=== PATIENT | female | born 1950 | race African-American/Black ===

== ENCOUNTER 2019-04-12 21:28 | Inpatient (IN) | payer MEDICARE ==
[~2019-04-12] VITALS: Ht 167.6 cm; Wt 48.1 kg
--- NOTE | 2019-04-12 21:44 | NUR ---
ED Nurse Note: pt ambulated to ed c/o aches and chills x 1 day. per brother abhishek who is bedside. noticed that she had an increase in confusion over 1 day. pt has left elbow cellulitis. pt aox3 to name, place, and purpose.
[2019-04-12 21:48] VITALS: BP_SYST 116; BP_SYST 85; BP_DIAS 108; BP_DIAS 56
[2019-04-12 22:56] LABS: HEMATOCRIT 43.4 % (37.0-47.0); HEMOGLOBIN 15.7 G/DL (12.0-16.0); MEAN CORPUSCULAR VOLUME 93 FL (80-99); PLATELET COUNT 159 K/UL (150-450); RED BLOOD COUNT 4.66 M/UL (4.20-5.40); WHITE BLOOD COUNT 17.8 K/UL (4.8-10.8)
[2019-04-12] MEDS ORDERED: Piperacillin/Tazobactam 3.375 GM in NS 110 ML IVPB ONE (23:00)
[2019-04-12] MEDS ORDERED: Vancomycin 1 GM in NS 275 ML IVPB ONE (23:00)
--- NOTE | 2019-04-12 23:20 | NUR ---
ED Nurse Note: brother (saray) [phone]
[2019-04-12 23:24] LABS: ALANINE AMINOTRANSFERASE 18 U/L (12-78); ALBUMIN 3.3 G/DL (3.4-5.0); ALBUMIN/GLOBULIN RATIO 0.8 (1.0-2.7); ALKALINE PHOSPHATASE 63 U/L (46-116); ANION GAP 11 mmol/L (5-15); ASPARTATE AMINO TRANSFERASE 27 U/L (15-37); BILIRUBIN,TOTAL 0.3 MG/DL (0.2-1.0); BLOOD UREA NITROGEN 20 mg/dL (7-18); CALCIUM 9.2 MG/DL (8.5-10.1); CARBON DIOXIDE 22 MMOL/L (21-32); CHLORIDE 99 MMOL/L (98-107); CREATININE 1.4 MG/DL (0.55-1.30); POTASSIUM 3.8 MMOL/L (3.5-5.1); SODIUM 132 MMOL/L (136-145)
[2019-04-12 23:34] VITALS: BP 140/89
[2019-04-12 23:39] LABS: BILIRUBIN, URINE NEGATIVE (NEGATIVE); COLOR,URINE PALE YELLOW; GLUCOSE, URINE (UA) NEGATIVE (NEGATIVE); KETONES,URINE NEGATIVE (NEGATIVE); LEUKOCYTE ESTERASE ,URINE 2+ (NEGATIVE); NITRITE,URINE NEGATIVE (NEGATIVE); PH,URINE 6 (4.5-8.0); PROTEIN,URINE 2+ (NEGATIVE); UROBILINOGEN,URINE NORMAL MG/DL (0.0-1.0)
[2019-04-12 23:41] LABS: APPEARANCE,URINE SLIGHTLY CLOUDY
--- NOTE | 2019-04-13 00:30 | NUR ---
ED Nurse Note: telephone report given to negro tarango
--- NOTE | 2019-04-13 00:32 | Emergency Room Report ---
History of Present Illness General Chief Complaint: Altered Mental Status Source: Patient, Family Member Present Illness HPI This is a 68-year-old female with no past medical history. She was brought in by her son for chief complaint of left elbow infection and altered mental status. This been ongoing for 1 day. Her son said that she like to sit on the floor with her elbow on the rug. She has abrasion to the left elbow. But today got swollen and little warm. She is more confused. No nausea no vomiting. Pain with palpation. Denies any other injury. Did not pass out. Allergies: Coded Allergies: No Known Allergies (Unverified , 04/12/19) Patient History Past Medical History: see triage record, old chart reviewed Past Surgical History: none Pertinent Family History: none Social History: Denies: smoking Now: No Immunizations: other Reviewed Nursing Documentation: PMH: Agreed; PSxH: Agreed Nursing Documentation-PMH Past Medical History: No Stated History Review of Systems Eye: Denies: eye pain, blurred vision ENT: Denies: ear pain, nose congestion, throat swelling Respiratory: Denies: cough, shortness of breath Cardiovascular: Denies: chest pain, palpitations Gastrointestinal: Denies: abdominal pain, diarrhea, nausea, vomiting Musculoskeletal: Reports: joint swelling; Denies: back pain, joint pain Skin: Denies: rash Neurological: Denies: headache, numbness Endocrine: Denies: increased thirst, increased urine Hematologic/Lymphatic: Denies: easy bruising All Other Systems: negative except mentioned in HPI Physical Exam Vital Signs Date Time Temp Pulse Resp B/P (MAP) Pulse Ox O2 Delivery O2 Flow Rate FiO2 04/12/19 21:44 98.6 104 22 85/56 (66) 86 Room Air Vitals with hypotension. Repeat blood pressure normal Sp02 EP Interpretation: reviewed, normal General Appearance: well appearing, no apparent distress, alert Head: normocephalic, atraumatic Eyes: bilateral eye PERRL, bilateral eye EOMI ENT: hearing grossly normal, normal pharynx Neck: full range of motion, supple, no meningismus Respiratory: chest non-tender, lungs clear, normal breath sounds Cardiovascular #1: regular rate, rhythm, no murmur Gastrointestinal: normal bowel sounds, non tender, no mass, no organomegaly, no bruit, non-distended Musculoskeletal: back normal, gait/station normal, normal range of motion, other - Left elbow: Posteriorly, there is diffuse soft tissue swelling. She has abrasion to the olecranon process. There is fluctuant to that area. Warm to the touch. The elbow however. Psychiatric: mood/affect normal Procedures Incision and Drainage Incision and Drainage : Consent: Verbal Site: Elbow left Blade Size: 11 I & D Procedure: betadine prep, sterile drapes applied, sterile dressing applied Wound Location: upper extremity Anesthesia: 1% Lidocaine Volume Anesthetic (ccs): 2 Patient Tolerated: Well Complications: None Progress Area cleaned with Betadine. Local anesthetic with 1% lidocaine without epinephrine. Initially going to aspirate to see if there is any pus. During injection, there was purulent discharge. I made a 2 cm incision. There was some purulent discharge as well as liquid that was expressed. Wound culture was done. Dressing placed. Patient tolerated seizure without any problem. Medical Decision Making Diagnostic Impression: Primary Impression: Cellulitis of left elbow Additional Impressions: Infected olecranon bursa Qualified Codes: M71.122 - Other infective bursitis, left elbow UTI (urinary tract infection) Qualified Codes: N30.00 - Acute cystitis without hematuria ER Course Patient with infected olecranon bursa. There was some purulent discharge. No evidence of any septic joint. No evidence of any fracture. Antibiotics given. This would also cover for UTI. Patient will be admitted for further IV antibiotics. I contacted Dr. Pedersen for admission. Other X-Ray Diagnostic Results Other X-Ray Diagnostic Results : X-Ray ordered: Xrays left elbow # of Views/Limited Vs Complete: 3 View Indication: Pain EP Interpretation: Yes Interpretation: no dislocation, no fractures, other - Soft tissue swelling Impression: Other - Soft tissue swelling Electronically Signed by: Too Vasquez MD Last Vital Signs Date Time Temp Pulse Resp B/P (MAP) Pulse Ox O2 Delivery O2 Flow Rate FiO2 04/12/19 23:34 97.2 102 18 140/89 94 Room Air Status: improved Disposition: ADMITTED INPATIENT Condition: Serious Referrals: NOT CHOSEN IPA/,REFERRING (PCP) Too Vasquez MD Apr 13, 2019 00:32
[2019-04-13] MEDS ORDERED: NKM (00:34)
--- NOTE | 2019-04-13 00:37 | NUR ---
ED Nurse Note: called brother saray and informed him of pts new room assignment
--- NOTE | 2019-04-13 00:42 | NUR ---
ED Nurse Note: pt was brought to unit with roni steven. pt is aox3 on room air, SR, VSS. all belongings have been given to pt.
[2019-04-13 01:00] VITALS: BP 117/66
--- NOTE | 2019-04-13 01:10 | NUR ---
NURSE NOTES: Pt brought up via gurney w/no belongings and in stable condition. Pt A&Ox2-3 with fever of 102 F axillary. Oriented pt to room and placed call light within reach w/bed in lowest position. Left vm for Dr. Pedersen re: fever and admission orders. Will continue to monitor.
[2019-04-13] MEDS ORDERED: HYDROcodone/Acetamin 5/325 tab ORAL PRN (02:45)
[2019-04-13 04:00] VITALS: BP 103/66
[2019-04-13] MEDS: Piperacillin/Tazobactam 3.375 GM in NS 110 ML IVPB SCH ×3 (06:09→22:50)
[2019-04-13 06:30] LABS: HEMATOCRIT 40.9 % (37.0-47.0); HEMOGLOBIN 14.2 G/DL (12.0-16.0); MEAN CORPUSCULAR VOLUME 98 FL (80-99); PLATELET COUNT 156 K/UL (150-450); RED BLOOD COUNT 4.18 M/UL (4.20-5.40); RED CELL DISTRIBUTION WIDTH 11.5 % (11.6-14.8); WHITE BLOOD COUNT 17.5 K/UL (4.8-10.8)
[2019-04-13 07:06] LABS: ALANINE AMINOTRANSFERASE 16 U/L (12-78); ALBUMIN 2.6 G/DL (3.4-5.0); ALBUMIN/GLOBULIN RATIO 0.7 (1.0-2.7); ANION GAP 10 mmol/L (5-15); ASPARTATE AMINO TRANSFERASE 36 U/L (15-37); BILIRUBIN,TOTAL 0.3 MG/DL (0.2-1.0); BLOOD UREA NITROGEN 16 mg/dL (7-18); CALCIUM 8.3 MG/DL (8.5-10.1); CARBON DIOXIDE 20 MMOL/L (21-32); CHLORIDE 105 MMOL/L (98-107); CHOLESTEROL 131 MG/DL (< 200); CREATININE 1.2 MG/DL (0.55-1.30); HDL CHOLESTEROL 36 MG/DL (40-60); POTASSIUM 3.8 MMOL/L (3.5-5.1); SODIUM 135 MMOL/L (136-145); TRIGLYCERIDES 83 MG/DL (30-150)
[2019-04-13 07:23] LABS: ALKALINE PHOSPHATASE 54 U/L (46-116)
--- NOTE | 2019-04-13 07:30 | NUR ---
HAND-OFF: Report given to GEORGE Drummond.
[2019-04-13 08:00] VITALS: BP 129/65
--- NOTE | 2019-04-13 08:00 | NUR ---
NURSE NOTES: Received report from Lindsey VAZQUEZ, pt a/a/o laying in bed with no signs of distress or other issues time. pt has a cellulitis in the left elbow dressing is with 4x4 and felipe Bowles, RN will change dressing once web application dev specialist evaluate. IV on the left upper arm running Iv abx. call light within reach bed in lowest position. side rales up x2. I will f/u as needed. pt's brother Grey: [phone](home) [phone](cell)
[2019-04-13] MEDS ORDERED: Enoxaparin 40mg Inj SUBQ SCH (09:00)
[2019-04-13] MEDS ORDERED: Tubing IV Secondary IV ONE (10:22)
[2019-04-13] MEDS ORDERED: Gadavist 7.5mMol/7.5ml vial IV PRN (11:45)
--- NOTE | 2019-04-13 11:45 | Diagnostic Imaging Report ---
Indications:Pain, swelling, trauma Technique: Three or 4 views of the left elbow Comparison: None Findings: There is marked dorsal soft tissue swelling. No joint effusion. No definite acute fractures. No dislocations. The joint spaces are preserved. Impression: Evidence of soft tissue injury. No acute bony trauma
--- NOTE | 2019-04-13 11:46 | Consultation ---
History of Present Illness General Date patient seen: Apr 13, 2019 Reason for Hospitalization: Altered Mental Status Present Illness HPI This is a pleasant 68-year-old female who presented to the emergency department with family at [facility] complaining of worsening fatigue, discomfort, left elbow infection. Patient was identified to have a leukocytosis and fevers. Was admitted for care and management and further work- up. Surgery was called to evaluate given left elbow potential abscess and cellulitis. Patient seen, patient evaluated, chart reviewed. In discussing with patient the etiology of the wound she states that she sits on the floor and lays on her left elbow significant period of time. She states that over the past 7 months she is noted some thickening of the tissue in her left elbow and some skin breakdown and opening. States she is seen drainage prior. States she is been taking care of herself and has not seek medical attention for it. When her son noticed it decided to come for evaluation. Allergies: Coded Allergies: No Known Allergies (Unverified , 04/12/19) Medication History Scheduled No Known Medications* (NKM - No Known Medications*), 0 ., (Reported) Patient History History Provided By: Patient, Medical Record, PMD Healthcare decision maker Resuscitation status Full Code Advanced Directive on File Past Medical/Surgical History Past Medical/Surgical History: (1) Infected olecranon bursa (2) UTI (urinary tract infection) (3) Cellulitis of left elbow Review of Systems Review of Symptoms General ROS: no weight loss or fever Psychological ROS: no depression or mood changes, no memory loss Ophthalmic ROS: no visual changes or eye irritation ENT ROS: no nasal congestion, hearing loss, dizziness Allergy and Immunology ROS: no allergic symptoms or urticaria Hematological and Lymphatic ROS: no swollen glands, unusual bleeding or bruising Endocrine ROS: no polyuria, polydipsia, weight changes, temperature intolerance Respiratory ROS: no cough, shortness of breath, or wheezing Cardiovascular ROS: no chest pain or dyspnea on exertion Gastrointestinal ROS: denies abdominal pain, no bright red blood in stool. Musculoskeletal ROS: no myalgias or arthralgias Neurological ROS: no TIA or stroke symptoms Dermatological ROS: no new or changing skin lesions, rashes or pruritis Physical Exam Physical Exam General appearance: alert, cooperative, no distress, appears stated age Head: Normocephalic, without obvious abnormality, atraumatic Eyes: conjunctivae/corneas clear. PERRL, EOM's intact. Fundi benign Throat: Lips, mucosa, and tongue normal. Teeth and gums normal Neck: supple, symmetrical, trachea midline, no adenopathy, thyroid: not enlarged, symmetric, no tenderness/mass/nodules, no carotid bruit and no JVD Lungs: clear to auscultation bilaterally Heart: regular rate and rhythm, S1, S2 normal, no murmur, click, rub or gallop Abdomen: soft, non-tender. Bowel sounds normal. No masses, no organomegaly Extremities: extremities left elbow with cellulitis, bursitis, 1 cm opening that is 4 cm deep down to bone with serous drainage no purulent drainage. Pulses: 2+ and symmetric Skin: Skin color, texture, turgor normal. No rashes or lesions Neurologic: Grossly normal Last 24 Hour Vital Signs Date Time Temp Pulse Resp B/P (MAP) Pulse Ox O2 Delivery O2 Flow Rate FiO2 04/13/19 08:00 98.6 85 18 129/65 (86) 97 04/13/19 04:29 100.1 04/13/19 04:00 100.1 89 16 103/66 (78) 92 04/13/19 03:08 Room Air 04/13/19 01:00 102.0 84 16 117/66 (83) 95 04/13/19 00:49 97.5 86 22 123/84 94 Room Air 04/12/19 23:34 97.2 102 18 140/89 94 Room Air 04/12/19 21:48 104 22 Room Air 04/12/19 21:48 97.2 104 22 116/108 96 Room Air 04/12/19 21:44 98.6 104 22 85/56 (66) 86 Room Air Intake and Output 04/12/19 04/13/19 18:59 06:59 Intake Total 1350 ml Balance 1350 ml Intake Oral 240 ml IV Total 1110 ml # Voids 3 Laboratory Tests Test 04/12/19 22:30 04/12/19 23:20 04/13/19 05:35 White Blood Count 17.8 K/UL (4.8-10.8) H 17.5 K/UL (4.8-10.8) H Red Blood Count 4.66 M/UL (4.20-5.40) 4.18 M/UL (4.20-5.40) L Hemoglobin 15.7 G/DL (12.0-16.0) 14.2 G/DL (12.0-16.0) Hematocrit 43.4 % (37.0-47.0) 40.9 % (37.0-47.0) Mean Corpuscular Volume 93 FL (80-99) 98 FL (80-99) Mean Corpuscular Hemoglobin 33.8 PG (27.0-31.0) H 34.0 PG (27.0-31.0) H Mean Corpuscular Hemoglobin Concent 36.3 G/DL (32.0-36.0) H 34.8 G/DL (32.0-36.0) Red Cell Distribution Width 11.0 % (11.6-14.8) L 11.5 % (11.6-14.8) L Platelet Count 159 K/UL (150-450) 156 K/UL (150-450) Mean Platelet Volume 6.2 FL (6.5-10.1) L 7.1 FL (6.5-10.1) Neutrophils (%) (Auto) % (45.0-75.0) % (45.0-75.0) Lymphocytes (%) (Auto) % (20.0-45.0) % (20.0-45.0) Monocytes (%) (Auto) % (1.0-10.0) % (1.0-10.0) Eosinophils (%) (Auto) % (0.0-3.0) % (0.0-3.0) Basophils (%) (Auto) % (0.0-2.0) % (0.0-2.0) Differential Total Cells Counted 100 100 Neutrophils % (Manual) 81 % (45-75) H 83 % (45-75) H Lymphocytes % (Manual) 8 % (20-45) L 10 % (20-45) L Monocytes % (Manual) 5 % (1-10) 7 % (1-10) Eosinophils % (Manual) 0 % (0-3) 0 % (0-3) Basophils % (Manual) 0 % (0-2) 0 % (0-2) Band Neutrophils 6 % (0-8) 0 % (0-8) Platelet Estimate Adequate Adequate Platelet Morphology Normal Normal Red Blood Cell Morphology Normal Normal Sodium Level 132 MMOL/L (136-145) L 135 MMOL/L (136-145) L Potassium Level 3.8 MMOL/L (3.5-5.1) 3.8 MMOL/L (3.5-5.1) Chloride Level 99 MMOL/L (98-107) 105 MMOL/L (98-107) Carbon Dioxide Level 22 MMOL/L (21-32) 20 MMOL/L (21-32) L Anion Gap 11 mmol/L (5-15) 10 mmol/L (5-15) Blood Urea Nitrogen 20 mg/dL (7-18) H 16 mg/dL (7-18) Creatinine 1.4 MG/DL (0.55-1.30) H 1.2 MG/DL (0.55-1.30) Estimat Glomerular Filtration Rate 45.3 mL/min (>60) 54.2 mL/min (>60) Glucose Level 103 MG/DL (74-106) 96 MG/DL (74-106) Lactic Acid Level 1.10 mmol/L (0.4-2.0) Calcium Level 9.2 MG/DL (8.5-10.1) 8.3 MG/DL (8.5-10.1) L Total Bilirubin 0.3 MG/DL (0.2-1.0) 0.3 MG/DL (0.2-1.0) Aspartate Amino Transf (AST/SGOT) 27 U/L (15-37) 36 U/L (15-37) Alanine Aminotransferase (ALT/SGPT) 18 U/L (12-78) 16 U/L (12-78) Alkaline Phosphatase 63 U/L (46-116) 54 U/L (46-116) Troponin I 0.026 ng/mL (0.000-0.056) Total Protein 7.6 G/DL (6.4-8.2) 6.4 G/DL (6.4-8.2) Albumin 3.3 G/DL (3.4-5.0) L 2.6 G/DL (3.4-5.0) L Globulin 4.3 g/dL 3.8 g/dL Albumin/Globulin Ratio 0.8 (1.0-2.7) L 0.7 (1.0-2.7) L Urine Color Pale yellow Urine Appearance Slightly cloudy Urine pH 6 (4.5-8.0) Urine Specific [place] 1.015 (1.005-1.035) Urine Protein 2+ (NEGATIVE) H Urine Glucose (UA) Negative (NEGATIVE) Urine Ketones Negative (NEGATIVE) Urine Blood 5+ (NEGATIVE) H Urine Nitrite Negative (NEGATIVE) Urine Bilirubin Negative (NEGATIVE) Urine Urobilinogen Normal MG/DL (0.0-1.0) Urine Leukocyte Esterase 2+ (NEGATIVE) H Urine RBC 10-15 /HPF (0 - 2) H Urine WBC 10-15 /HPF (0 - 2) H Urine Squamous Epithelial Cells Few /LPF (NONE/OCC) Urine Bacteria Moderate /HPF (NONE) H Hemoglobin A1c 6.0 % (4.3-6.0) Triglycerides Level 83 MG/DL (30-150) Cholesterol Level 131 MG/DL (< 200) LDL Cholesterol 73 mg/dL (<100) HDL Cholesterol 36 MG/DL (40-60) L Cholesterol/HDL Ratio 3.6 (3.3-4.4) Thyroid Stimulating Hormone (TSH) 0.281 uiU/mL (0.358-3.740) Height (Feet): 5 Height (Inches): 6.00 Weight (Pounds): 107 Medications Current Medications Medications (Trade) Dose Ordered Sig/Kedar Route PRN Reason Start Time Stop Time Status Last Admin Dose Admin Acetaminophen (Tylenol) 650 mg Q4H PRN ORAL Mild Pain/Temp > 100.5 04/13/19 02:45 05/13/19 02:44 04/13/19 03:32 Acetaminophen/ Hydrocodone Bitart ([place] 5/325) 1 tab Q4H PRN ORAL Breakthrough Pain 04/13/19 02:45 04/20/19 02:44 Enoxaparin Sodium (Lovenox) 40 mg DAILY SUBQ 04/13/19 09:00 05/13/19 08:59 04/13/19 09:13 Pantoprazole (Protonix) 40 mg DAILY ORAL 04/13/19 09:00 05/13/19 08:59 04/13/19 09:12 Piperacillin Sod/ Tazobactam Sod 3.375 gm/Sodium Chloride 110 ml @ 27.5 mls/hr EVERY 8 HOURS IVPB 04/13/19 06:00 04/20/19 05:59 04/13/19 06:09 Vancomycin HCl (Vanco rx to dose) 1 ea DAILY PRN MISC Per rx protocol 04/13/19 02:45 05/13/19 02:44 Assessment/Plan Problem List: (1) Infected olecranon bursa ICD Codes: M71.129 - Other infective bursitis, unspecified elbow SNOMED: [id number] Qualifiers: Qualified Codes: M71.122 - Other infective bursitis, left elbow (2) UTI (urinary tract infection) ICD Codes: N39.0 - Urinary tract infection, site not specified SNOMED: [id number] Qualifiers: Qualified Codes: N30.00 - Acute cystitis without hematuria (3) Cellulitis of left elbow Assessment & Plan: This is a 68-year-old female with left elbow cellulitis and open wound. Patient's wound is 1 cm in diameter at the apex of the left elbow and when palpated with Q-tip identified to be 3 to 4 cm deep down to palpable bone with Q-tip. Serous drainage identified. Periwound maceration noted. Edema noted. Tender on examination. Patient states developed this many months ago has been worsening since and she is been caring for it. Believes it began from friction injury from laying on her left elbow on the floor. Given the above findings and patient's leukocytosis and fevers recommend MRI of the left elbow to ensure that the bone and joint are not involved or nor infected. Plain films pending. IV antibiotics as per infectious disease. Iodoform packing and gauze dressing daily and as needed saturation We will follow with recommendations Thank you for allowing me to participate in patient's care ICD Codes: L03.114 - Cellulitis of left upper limb SNOMED: [id number] Berny Larkin Apr 13, 2019 11:46
[2019-04-13 12:00] VITALS: BP 116/74
--- NOTE | 2019-04-13 13:43 | History & Physical ---
History and Physical History & Physicial seen and examined. Dictated on 142 pM Gary Pedersen MD Apr 13, 2019 13:43
--- NOTE | 2019-04-13 13:56 | NUR ---
RD ASSESSMENT & RECOMMENDATIONS SEE CARE ACTIVITY FOR COMPLETE ASSESSMENT DAILY ESTIMATED NEEDS: Needs based on Wound, underweight/ 48.5 kg 30-35 kcals/kg 4601-9957 total kcals 1.25-1.5 g protein/kg 60-73 g total protein 25-30 mL/kg 2945-3966 total fluid mLs NUTRITION DIAGNOSIS: Increased kcal/prot needs R/T wound healing, underweight status as evidenced by pt admitted w/ lt elbow cellulites, open + deep wound palpable bone with Q-tip per MD, pt @ 82% IBW w/ BMI of 17.3. CURRENT DIET:REGULAR PO DIET RECOMMENDATIONS: REGULAR as tolerated ADDITIONAL RECOMMENDATIONS: * Standing weight for accurate CBW * Monitor BGs closely, need for carb controlled diet/NISS: A1C of 6.0 * Monitor PO intake closely * Add Snacks BID in b/w meals * Wound healing: add MVI x 1, Vit C 250mg QD : add ZnSO4 220mg QD x 10 days : add Armando 1pkt BID
--- NOTE | 2019-04-13 14:00 | NUR ---
NURSE NOTES: pt went down for MRI with and without contrast. patient signed consent however once pt was down for the procedure pt REFUSED MRI with contrast. once patient was up to the floor pt stated that once to leave AMA since is not reason to be here in the hospital. she stated that she can fallow up at the doctors office. MD is aware. I will f/u as needed.
--- NOTE | 2019-04-13 15:23 | Diagnostic Imaging Report ---
Indication: Deep elbow wound and cellulitis Technique: Axial, sagittal, and coronal T1-weighted images, axial and sagittal STIR, coronal T2 fat sat PROPELLER images of the left elbow Comparison: Plain radiograph 04/12/2019 Findings: There is marked edema of the dorsal soft tissues. There is an area of low signal on all sequences which is perpendicular to the skin surface, measures 20 mm in depth by 8 mm transverse. No significant joint effusion demonstrated. No marrow signal abnormality demonstrated. No discrete fluid collections are evident. The triceps tendon appears intact. Impression: Diffuse edema of the dorsal soft tissues, consistent with stated clinical history of cellulitis Low signal abnormality perpendicular to the skin surface presumably reflects area of gauze packing within an open wound No marrow signal abnormality to suggest acute osteomyelitis No evidence of joint effusion
--- NOTE | 2019-04-13 15:29 | NUR ---
NURSE NOTES:WOUND CARE NOTES: Pt presented on admission with tunneled wound L elbow. Drsg noted to have sanguineous exudate prior to removal. base of wound non-viable. With surrounding erythema ,induration and elevation in skin temp. Pt stated she has tendency to sit on carpeted floor in her home and stated she has had wound for approx [address] Larkin in and evaluated wound.
--- NOTE | 2019-04-13 15:46 | NUR ---
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 98.6 HR 104 RR 72 RR 22 B/P 85/56 WBC 17.8 NA 132 BUN 20 CR 1.4 LEFT ELBOW XRAY- SOFT TISSUE INJURY MRI ELBOW= Diffuse edema of the dorsal soft tissues, consistent with stated clinical history of cellulitis IS: VANCO IV ZOSYN IV IV BOLUS NS ADMITTED TO MED/SURG @ 0042 MED/SURG STATUS DCP RETURN HOME
[2019-04-13 16:00] VITALS: BP 119/72
--- NOTE | 2019-04-13 16:48 | Consultation ---
History of Present Illness General Date patient seen: Apr 13, 2019 Time patient seen: 16:15 Chief Complaint: left elbow open nonhealing wound with cellulitis Referring physician: Keven Perez Reason for Consultation: left elbow open wound with cellulitis Present Illness HPI This is a 68-year-old female presented to the emergency department at [facility] complaining of worsening fatigue, and discomfort of the left elbow with open wound and infection. In discussing with patient the etiology of the wound she states that she sits on the floor and lays on her left elbow for significant period of time. She states that over the past 7 months she is noted some thickening of the tissue in her left elbow and some skin breakdown and opening. in ED Patient was found to have deep wound of the left elbow probe down all the way to the bone with significant leukocytosis and fevers concerning for sepsis so she was started on vancomycin and zosyn , and admitted for further care and management . infectious disease consult was requested for left elbow potential abscess and cellulitis. . States she is seen drainage prior. States she is been taking care of herself and has not seek medical attention for it. When her son noticed it decided to come for evaluation. Allergies: Coded Allergies: No Known Allergies (Unverified , 04/12/19) Medication History Scheduled No Known Medications* (NKM - No Known Medications*), 0 ., (Reported) Patient History Healthcare decision maker Resuscitation status Full Code Advanced Directive on File Past Medical/Surgical History Past Medical/Surgical History: (1) Infected olecranon bursa (2) UTI (urinary tract infection) Review of Systems Constitutional: Reports: malaise, weakness Eye: Reports: no symptoms ENT: Reports: no symptoms Respiratory: Reports: no symptoms Cardiovascular: Reports: no symptoms Gastrointestinal: Reports: no symptoms Genitourinary: Reports: no symptoms Musculoskeletal: Reports: joint pain, joint swelling Skin: Reports: no symptoms Psychiatric: Reports: no symptoms Neurological: Reports: no symptoms Endocrine: Reports: no symptoms Physical Exam General Appearance: WD/WN, no apparent distress, alert Lines, tubes and drains: peripheral HEENT: atraumatic, anicteric, mucous membranes moist, PERRL Neck: non-tender, normal alignment, supple, normal inspection, abnormal alignment Respiratory/Chest: chest wall non-tender, lungs clear, normal breath sounds, no respiratory distress, no accessory muscle use Cardiovascular/Chest: normal peripheral pulses, normal rate, regular rhythm, no gallop/murmur, no JVD Abdomen: normal bowel sounds, non tender, soft, no organomegaly, no mass, abnormal bowel sounds Genitourinary/Rectal: normal genital exam, normal rectal exam Extremities: normal range of motion, non-tender, no calf tenderness, normal capillary refill, non-pitting, trace edema, other - left elbow wound with opening deep to the bone , and mild draining Skin Exam: normal pigmentation, warm/dry, cyanotic Neurologic: alert, responsive Musculoskeletal: normal muscle bulk, other - left elbow effusion Last 24 Hour Vital Signs Date Time Temp Pulse Resp B/P (MAP) Pulse Ox O2 Delivery O2 Flow Rate FiO2 04/13/19 16:00 98.1 79 19 119/72 (88) 97 04/13/19 12:00 98.1 79 19 116/74 (88) 97 04/13/19 09:00 Room Air 04/13/19 08:00 98.6 85 18 129/65 (86) 97 04/13/19 04:29 100.1 04/13/19 04:00 100.1 89 16 103/66 (78) 92 04/13/19 03:08 Room Air 04/13/19 01:00 102.0 84 16 117/66 (83) 95 04/13/19 00:49 97.5 86 22 123/84 94 Room Air 04/12/19 23:34 97.2 102 18 140/89 94 Room Air 04/12/19 21:48 104 22 Room Air 04/12/19 21:48 97.2 104 22 116/108 96 Room Air 04/12/19 21:44 98.6 104 22 85/56 (66) 86 Room Air Intake and Output 04/12/19 04/13/19 19:00 07:00 Intake Total 1350 ml Balance 1350 ml Intake Oral 240 ml IV Total 1110 ml # Voids 3 Laboratory Tests Test 04/12/19 22:30 04/12/19 23:20 04/13/19 05:35 White Blood Count 17.8 K/UL (4.8-10.8) H 17.5 K/UL (4.8-10.8) H Red Blood Count 4.66 M/UL (4.20-5.40) 4.18 M/UL (4.20-5.40) L Hemoglobin 15.7 G/DL (12.0-16.0) 14.2 G/DL (12.0-16.0) Hematocrit 43.4 % (37.0-47.0) 40.9 % (37.0-47.0) Mean Corpuscular Volume 93 FL (80-99) 98 FL (80-99) Mean Corpuscular Hemoglobin 33.8 PG (27.0-31.0) H 34.0 PG (27.0-31.0) H Mean Corpuscular Hemoglobin Concent 36.3 G/DL (32.0-36.0) H 34.8 G/DL (32.0-36.0) Red Cell Distribution Width 11.0 % (11.6-14.8) L 11.5 % (11.6-14.8) L Platelet Count 159 K/UL (150-450) 156 K/UL (150-450) Mean Platelet Volume 6.2 FL (6.5-10.1) L 7.1 FL (6.5-10.1) Neutrophils (%) (Auto) % (45.0-75.0) % (45.0-75.0) Lymphocytes (%) (Auto) % (20.0-45.0) % (20.0-45.0) Monocytes (%) (Auto) % (1.0-10.0) % (1.0-10.0) Eosinophils (%) (Auto) % (0.0-3.0) % (0.0-3.0) Basophils (%) (Auto) % (0.0-2.0) % (0.0-2.0) Differential Total Cells Counted 100 100 Neutrophils % (Manual) 81 % (45-75) H 83 % (45-75) H Lymphocytes % (Manual) 8 % (20-45) L 10 % (20-45) L Monocytes % (Manual) 5 % (1-10) 7 % (1-10) Eosinophils % (Manual) 0 % (0-3) 0 % (0-3) Basophils % (Manual) 0 % (0-2) 0 % (0-2) Band Neutrophils 6 % (0-8) 0 % (0-8) Platelet Estimate Adequate Adequate Platelet Morphology Normal Normal Red Blood Cell Morphology Normal Normal Sodium Level 132 MMOL/L (136-145) L 135 MMOL/L (136-145) L Potassium Level 3.8 MMOL/L (3.5-5.1) 3.8 MMOL/L (3.5-5.1) Chloride Level 99 MMOL/L (98-107) 105 MMOL/L (98-107) Carbon Dioxide Level 22 MMOL/L (21-32) 20 MMOL/L (21-32) L Anion Gap 11 mmol/L (5-15) 10 mmol/L (5-15) Blood Urea Nitrogen 20 mg/dL (7-18) H 16 mg/dL (7-18) Creatinine 1.4 MG/DL (0.55-1.30) H 1.2 MG/DL (0.55-1.30) Estimat Glomerular Filtration Rate 45.3 mL/min (>60) 54.2 mL/min (>60) Glucose Level 103 MG/DL (74-106) 96 MG/DL (74-106) Lactic Acid Level 1.10 mmol/L (0.4-2.0) Calcium Level 9.2 MG/DL (8.5-10.1) 8.3 MG/DL (8.5-10.1) L Total Bilirubin 0.3 MG/DL (0.2-1.0) 0.3 MG/DL (0.2-1.0) Aspartate Amino Transf (AST/SGOT) 27 U/L (15-37) 36 U/L (15-37) Alanine Aminotransferase (ALT/SGPT) 18 U/L (12-78) 16 U/L (12-78) Alkaline Phosphatase 63 U/L (46-116) 54 U/L (46-116) Troponin I 0.026 ng/mL (0.000-0.056) Total Protein 7.6 G/DL (6.4-8.2) 6.4 G/DL (6.4-8.2) Albumin 3.3 G/DL (3.4-5.0) L 2.6 G/DL (3.4-5.0) L Globulin 4.3 g/dL 3.8 g/dL Albumin/Globulin Ratio 0.8 (1.0-2.7) L 0.7 (1.0-2.7) L Urine Color Pale yellow Urine Appearance Slightly cloudy Urine pH 6 (4.5-8.0) Urine Specific [place] 1.015 (1.005-1.035) Urine Protein 2+ (NEGATIVE) H Urine Glucose (UA) Negative (NEGATIVE) Urine Ketones Negative (NEGATIVE) Urine Blood 5+ (NEGATIVE) H Urine Nitrite Negative (NEGATIVE) Urine Bilirubin Negative (NEGATIVE) Urine Urobilinogen Normal MG/DL (0.0-1.0) Urine Leukocyte Esterase 2+ (NEGATIVE) H Urine RBC 10-15 /HPF (0 - 2) H Urine WBC 10-15 /HPF (0 - 2) H Urine Squamous Epithelial Cells Few /LPF (NONE/OCC) Urine Bacteria Moderate /HPF (NONE) H Hemoglobin A1c 6.0 % (4.3-6.0) Triglycerides Level 83 MG/DL (30-150) Cholesterol Level 131 MG/DL (< 200) LDL Cholesterol 73 mg/dL (<100) HDL Cholesterol 36 MG/DL (40-60) L Cholesterol/HDL Ratio 3.6 (3.3-4.4) Thyroid Stimulating Hormone (TSH) 0.281 uiU/mL (0.358-3.740) Height (Feet): 5 Height (Inches): 6.00 Weight (Pounds): 107 Medications Current Medications Medications (Trade) Dose Ordered Sig/Kedar Route PRN Reason Start Time Stop Time Status Last Admin Dose Admin Acetaminophen (Tylenol) 650 mg Q4H PRN ORAL Mild Pain/Temp > 100.5 04/13/19 02:45 05/13/19 02:44 04/13/19 03:32 Acetaminophen/ Hydrocodone Bitart ([place] 5/325) 1 tab Q4H PRN ORAL Breakthrough Pain 04/13/19 02:45 04/20/19 02:44 Enoxaparin Sodium (Lovenox) 40 mg DAILY SUBQ 04/13/19 09:00 05/13/19 08:59 04/13/19 09:13 Gadobutrol (Gadavist) 7.5 mmol NOW PRN IV Radiology Procedure 04/13/19 11:45 04/17/19 11:41 Pantoprazole (Protonix) 40 mg DAILY ORAL 04/13/19 09:00 05/13/19 08:59 04/13/19 09:12 Piperacillin Sod/ Tazobactam Sod 3.375 gm/Sodium Chloride 110 ml @ 27.5 mls/hr EVERY 8 HOURS IVPB 04/13/19 06:00 04/20/19 05:59 04/13/19 13:32 Vancomycin HCl (Vanco rx to dose) 1 ea DAILY PRN MISC Per rx protocol 04/13/19 02:45 05/13/19 02:44 Vancomycin HCl 750 mg/Sodium Chloride 275 ml @ 183.333 mls/hr Q24H IVPB 04/13/19 22:00 04/18/19 21:59 Assessment/Plan Problem List: (1) Wound, open, elbow Assessment & Plan: deep down with no evidence of underlying osteomyelitis on MRI, continue current antibiotics treatment with local wound care , recommend ortho eval for the left elbow joint to rule out septic joint ICD Codes: S51.009A - Unspecified open wound of unspecified elbow, initial encounter SNOMED: 640014982 Qualifiers: Qualified Codes: S51.002A - Unspecified open wound of left elbow, initial encounter (2) Cellulitis of left elbow Assessment & Plan: already on wide spectrum antibiotics pending cultures ICD Codes: L03.114 - Cellulitis of left upper limb SNOMED: 967633341 (3) UTI (urinary tract infection) Assessment & Plan: already on zosyn pending culture ICD Codes: N39.0 - Urinary tract infection, site not specified SNOMED: 31894283 Qualifiers: Qualified Codes: N30.00 - Acute cystitis without hematuria (4) Leukocytosis Assessment & Plan: rule out sepsis , continue wide spectrum antibiotics pending blood culture ICD Codes: D72.829 - Elevated white blood cell count, unspecified SNOMED: 963137867, 674220117 Qualifiers: Qualified Codes: D72.828 - Other elevated white blood cell count Status: Sharath Lomeli M.D. Apr 13, 2019 16:48
[2019-04-13 20:00] VITALS: BP 116/72
--- NOTE | 2019-04-13 20:01 | NUR ---
HAND-OFF: Report given to Lindsey VAZQUEZ, pt in stable condition.
[2019-04-13] MEDS ORDERED: Vancomycin 750mg/NS 275ml IVPB SCH ×4 (21:00→22:00)
[2019-04-14] VITALS: BP 136/73
--- NOTE | 2019-04-14 03:30 | History and Physical Report ---
DATE OF ADMISSION: 04/12/2019 SOURCE OF INFORMATION: Patient and EMR. HISTORY OF PRESENT ILLNESS: The patient is a 68-year-old female with an unremarkable history, who presented with general weakness and pain and swelling on the elbow. At the time of evaluation, the patient is complaining of mild pain in the left elbow. Otherwise, denies any chest pain or shortness of breath. No nausea. No vomitus. No diarrhea. No constipation. PAST SURGICAL HISTORY: Denies. ALLERGIES: NKDA. MEDICATIONS: Current hospital medications including Zosyn and vancomycin. SOCIAL HISTORY: The patient reported that lives by herself. Denies history of illicit drug abuse, smoking, or alcohol abuse. PHYSICAL EXAMINATION: VITAL SIGNS: Blood pressure , respiratory rate 18, pulse rate 104, and temperature 102. HEAD AND NECK: Atraumatic and normocephalic. CHEST: Clear to auscultation. No wheezing. HEART: S1, S2. Regular rate and rhythm. ABDOMEN: Soft. No organomegaly. MUSCULOSKELETAL: Positive for the areas of the redness, swelling, and tenderness on the overlying left elbow. NEUROLOGIC: The patient is awake, alert, and oriented x3. LABORATORY DATA: Dated 04/12/2019 shows sodium is 132, potassium 3.8, and creatinine 1.4. WBC 17.8 and platelets 159,000. Urinalysis shows 15 wbc's, negative for nitrite. ASSESSMENT: 1. Severe sepsis. 2. Cellulitis/abscess formation on the left forearm. 3. Hyponatremia. 4. Acute renal failure. 5. GI and DVT prophylaxes. 6. Urinary tract infection. PLAN OF CARE: I will start the patient on empiric antibiotic treatment. We will follow up with the general surgeon and Infectious Disease have been consulted. Gary Pedersen M.D. DR: HANNAH JOB#: [id number] CC:
--- NOTE | 2019-04-14 03:47 | NUR ---
NURSE NOTE: Received patient sleeping, awakens to name, answers questions appropriately, denies pain. VS taken and low grade fever noted. Monitored closely for spikes in temperature, none noted through out NOC shift thus far. Patient tolerated Zosyn 3.375 gm and Vanco 750 mg IV doses well with no adverse effects for either administration. Patient sleeps well with no s/s of distress. Bed at lowest level, call light within reach. Pt will continue to be monitored. Pt in stable condition.
[2019-04-14 04:00] VITALS: BP 129/80
[2019-04-14] MEDS: Piperacillin/Tazobactam 3.375 GM in NS 110 ML IVPB SCH ×3 (05:51→22:30)
[2019-04-14 06:15] LABS: BASOPHILS % (AUTO) 0.4 % (0.0-2.0); EOSINOPHILS % (AUTO) 0.1 % (0.0-3.0); HEMATOCRIT 41.9 % (37.0-47.0); HEMOGLOBIN 14.4 G/DL (12.0-16.0); LYMPHOCYTES % (AUTO) 7.9 % (20.0-45.0); MEAN CORPUSCULAR VOLUME 98 FL (80-99); MONOCYTES % (AUTO) 9.2 % (1.0-10.0); NEUTROPHILS % (AUTO) 82.4 % (45.0-75.0); PLATELET COUNT 139 K/UL (150-450); RED BLOOD COUNT 4.29 M/UL (4.20-5.40); RED CELL DISTRIBUTION WIDTH 11.6 % (11.6-14.8); WHITE BLOOD COUNT 12.3 K/UL (4.8-10.8)
[2019-04-14 07:11] LABS: ALANINE AMINOTRANSFERASE 21 U/L (12-78); ALBUMIN 2.5 G/DL (3.4-5.0); ALBUMIN/GLOBULIN RATIO 0.6 (1.0-2.7); ALKALINE PHOSPHATASE 60 U/L (46-116); ANION GAP 10 mmol/L (5-15); ASPARTATE AMINO TRANSFERASE 34 U/L (15-37); BILIRUBIN,TOTAL 0.4 MG/DL (0.2-1.0); BLOOD UREA NITROGEN 11 mg/dL (7-18); CALCIUM 8.6 MG/DL (8.5-10.1); CARBON DIOXIDE 24 MMOL/L (21-32); CHLORIDE 108 MMOL/L (98-107); CREATININE 1.1 MG/DL (0.55-1.30); POTASSIUM 3.9 MMOL/L (3.5-5.1); SODIUM 141 MMOL/L (136-145)
--- NOTE | 2019-04-14 07:25 | NUR ---
HAND-OFF: Report given to GEORGE Pollack.
--- NOTE | 2019-04-14 07:40 | NUR ---
NURSE NOTES: awake/alert. no c.o pain. left elbow dressing dry and intact. in no distress.
[2019-04-14 08:04] VITALS: BP 91/55
--- NOTE | 2019-04-14 09:04 | NUR ---
NURSE NOTES: DR REARDON CALLED RE PLATELET 139. ON LOVENOX. NEED TO CHECK PARAMETER WHEN TO GIVE MEDICINE. LEFT MESSAGE TO RETURN CALL.
--- NOTE | 2019-04-14 10:43 | Surgery Progress Note ---
Surgery Progress Note Subjective Additional Comments no acute events comfortable stable MRI noted wants to go home Objective Last 24 Hour Vital Signs Date Time Temp Pulse Resp B/P (MAP) Pulse Ox O2 Delivery O2 Flow Rate FiO2 04/14/19 08:14 Room Air 04/14/19 08:04 97.8 63 20 91/55 (67) 92 04/14/19 04:00 99.7 80 18 129/80 (96) 91 04/14/19 00:00 99.8 97 16 136/73 (94) 97 04/13/19 21:00 Room Air 04/13/19 20:00 100.1 87 17 116/72 (87) 92 04/13/19 16:00 98.1 79 19 119/72 (88) 97 04/13/19 12:00 98.1 79 19 116/74 (88) 97 I&O Intake and Output 04/13/19 04/14/19 18:59 06:59 Intake Total 500 ml 505.000 ml Balance 500 ml 505.000 ml Intake Oral 500 ml 120 ml IV Total 385.000 ml # Voids 2 1 Dressing: saturated Wound: clean Cardiovascular: RSR Respiratory: clear Abdomen: soft, non-tender, present bowel sounds, non-distended Extremities: edema, tenderness, no cyanosis, other Laboratory Tests Test 04/14/19 05:15 White Blood Count 12.3 K/UL (4.8-10.8) H Red Blood Count 4.29 M/UL (4.20-5.40) Hemoglobin 14.4 G/DL (12.0-16.0) Hematocrit 41.9 % (37.0-47.0) Mean Corpuscular Volume 98 FL (80-99) Mean Corpuscular Hemoglobin 33.5 PG (27.0-31.0) H Mean Corpuscular Hemoglobin Concent 34.3 G/DL (32.0-36.0) Red Cell Distribution Width 11.6 % (11.6-14.8) Platelet Count 139 K/UL (150-450) L Mean Platelet Volume 7.6 FL (6.5-10.1) Neutrophils (%) (Auto) 82.4 % (45.0-75.0) H Lymphocytes (%) (Auto) 7.9 % (20.0-45.0) L Monocytes (%) (Auto) 9.2 % (1.0-10.0) Eosinophils (%) (Auto) 0.1 % (0.0-3.0) Basophils (%) (Auto) 0.4 % (0.0-2.0) Sodium Level 141 MMOL/L (136-145) Potassium Level 3.9 MMOL/L (3.5-5.1) Chloride Level 108 MMOL/L (98-107) H Carbon Dioxide Level 24 MMOL/L (21-32) Anion Gap 10 mmol/L (5-15) Blood Urea Nitrogen 11 mg/dL (7-18) Creatinine 1.1 MG/DL (0.55-1.30) Estimat Glomerular Filtration Rate 59.9 mL/min (>60) Glucose Level 92 MG/DL (74-106) Calcium Level 8.6 MG/DL (8.5-10.1) Total Bilirubin 0.4 MG/DL (0.2-1.0) Aspartate Amino Transf (AST/SGOT) 34 U/L (15-37) Alanine Aminotransferase (ALT/SGPT) 21 U/L (12-78) Alkaline Phosphatase 60 U/L (46-116) Total Protein 6.7 G/DL (6.4-8.2) Albumin 2.5 G/DL (3.4-5.0) L Globulin 4.2 g/dL Albumin/Globulin Ratio 0.6 (1.0-2.7) L Plan Problems: (1) Infected olecranon bursa (2) UTI (urinary tract infection) (3) Cellulitis of left elbow Assessment & Plan: This is a 68-year-old female with left elbow cellulitis and open wound. Patient's wound is 1 cm in diameter at the apex of the left elbow and when palpated with Q-tip identified to be 3 to 4 cm deep down to palpable bone with Q-tip. Serous drainage identified. Periwound maceration noted. Edema noted. Tender on examination. Patient states developed this many months ago has been worsening since and she is been caring for it. Believes it began from friction injury from laying on her left elbow on the floor. MRI with : Impression: Diffuse edema of the dorsal soft tissues, consistent with stated clinical history of cellulitis Low signal abnormality perpendicular to the skin surface presumably reflects area of gauze packing within an open wound No marrow signal abnormality to suggest acute osteomyelitis No evidence of joint effusion IV antibiotics as per infectious disease. Iodoform packing and gauze dressing daily and as needed saturation no acute surgical intervention planned We will follow with recommendations Thank you for allowing me to participate in patient's care Berny Larkin Apr 14, 2019 10:43
[2019-04-14 12:00] VITALS: BP 132/78
--- NOTE | 2019-04-14 12:51 | NUR ---
[employer] SI: CELLULITIS ELBOW T. 97.8 HR 63 RR 20 B/P 91/55 RA 98% WBC 12.3 IS: VANCO IV ZOSYN IV PROTONIX IV NORCO PO MED/SURG STATUS
--- NOTE | 2019-04-14 15:36 | Hematology/Onc Progress Note ---
Assessment/Plan Assessment/Plan # Thrombocytopenia - potential causes multifactorial, evaluate liver and viral etiologies to begin, also could be related to underlying medications patient has received. (can be due to zosyn) --> Hep panel and HIV ordered --> US abd to evaluate if plt further downtrending --> Peripheral smear ordered to evaluate for blasts /schistocytes --> abx and other meds have been reviewed --> ok for ppx if plt >50k w/ either heparin or lovenox --> at this time have started pt on scds --> ok to continue abx # Leuklocytosis iwth elbow infection, at this time, continue current antibiotics treatment with local wound care --> smear reviewed and no blasts noted --> cont anbx # Cellulitis of left elbow --> per id /surg, on abx # UTI (urinary tract infection) # Dvt ppx scds The timing of this note does not necessarily reflect the time of the patient was seen. Greatly appreciate consultation. Subjective Constitutional: Denies: no symptoms, chills, fever, malaise, weakness, other HEENT: Denies: no symptoms, eye pain, blurred vision, tearing, double vision, ear pain, ear discharge, nose pain, nose congestion, throat pain, throat swelling, mouth pain, mouth swelling, other Cardiovascular: Denies: no symptoms, chest pain, edema, irregular heart rate, lightheadedness, palpitations, syncope, other Respiratory: Denies: no symptoms, cough, shortness of breath, SOB with excertion, SOB at rest, sputum, wheezing, other Gastrointestinal/Abdominal: Denies: no symptoms, abdomen distended, abdominal pain, black stools, tarry stools, blood in stool, constipated, diarrhea, difficulty swallowing, nausea, poor appetite, poor fluid intake, rectal bleeding , vomiting, other Neurologic/Psychiatric: Denies: no symptoms, anxiety, depressed, emotional problems, headache, numbness, paresthesia, pre-existing deficit, seizure, tingling, tremors, weakness, other Endocrine: Denies: no symptoms, excessive sweating, flushing, intolerance to cold, intolerance to heat, increased hunger, increased thirst, increased urine, unexplained weight gain, unexplained weight loss, other Allergies: Coded Allergies: No Known Allergies (Unverified , 04/12/19) Subjective 04/14: labs have been reviewed, hiv and hep ordered, rlovenox was dced Objective Objective Current Medications Medications (Trade) Dose Ordered Sig/Kedar Route PRN Reason Start Time Stop Time Status Last Admin Dose Admin Acetaminophen (Tylenol) 650 mg Q4H PRN ORAL Mild Pain/Temp > 100.5 04/13/19 02:45 05/13/19 02:44 04/13/19 03:32 Acetaminophen/ Hydrocodone Bitart ([place] 5/325) 1 tab Q4H PRN ORAL Breakthrough Pain 04/13/19 02:45 04/20/19 02:44 Gadobutrol (Gadavist) 7.5 mmol NOW PRN IV Radiology Procedure 04/13/19 11:45 04/17/19 11:41 Pantoprazole (Protonix) 40 mg DAILY ORAL 04/13/19 09:00 05/13/19 08:59 04/14/19 08:31 Piperacillin Sod/ Tazobactam Sod 3.375 gm/Sodium Chloride 110 ml @ 27.5 mls/hr EVERY 8 HOURS IVPB 04/13/19 06:00 04/20/19 05:59 04/14/19 13:41 Vancomycin HCl (Vanco rx to dose) 1 ea DAILY PRN MISC Per rx protocol 04/13/19 02:45 05/13/19 02:44 Vancomycin HCl 750 mg/Sodium Chloride 275 ml @ 183.333 mls/hr Q24H IVPB 04/13/19 21:00 04/18/19 20:59 04/13/19 20:45 Last 24 Hour Vital Signs Date Time Temp Pulse Resp B/P (MAP) Pulse Ox O2 Delivery O2 Flow Rate FiO2 04/14/19 12:00 98.9 84 18 132/78 (96) 94 04/14/19 08:14 Room Air 04/14/19 08:04 97.8 63 20 91/55 (67) 92 04/14/19 04:00 99.7 80 18 129/80 (96) 91 04/14/19 00:00 99.8 97 16 136/73 (94) 97 04/13/19 21:00 Room Air 04/13/19 20:00 100.1 87 17 116/72 (87) 92 04/13/19 16:00 98.1 79 19 119/72 (88) 97 04/13/19 12:00 98.1 79 19 116/74 (88) 97 04/13/19 09:00 Room Air 04/13/19 08:00 98.6 85 18 129/65 (86) 97 04/13/19 04:29 100.1 04/13/19 04:00 100.1 89 16 103/66 (78) 92 04/13/19 03:08 Room Air 04/13/19 01:00 102.0 84 16 117/66 (83) 95 04/13/19 00:49 97.5 86 22 123/84 94 Room Air 04/12/19 23:34 97.2 102 18 140/89 94 Room Air 04/12/19 21:48 104 22 Room Air 04/12/19 21:48 97.2 104 22 116/108 96 Room Air 04/12/19 21:44 98.6 104 22 85/56 (66) 86 Room Air Intake and Output 04/13/19 04/14/19 19:00 07:00 Intake Total 500 ml 505.000 ml Balance 500 ml 505.000 ml Intake Oral 500 ml 120 ml IV Total 385.000 ml # Voids 2 1 Labs Test 04/12/19 22:30 04/12/19 23:20 04/13/19 05:35 04/14/19 05:15 White Blood Count 17.8 K/UL (4.8-10.8) 17.5 K/UL (4.8-10.8) 12.3 K/UL (4.8-10.8) Red Blood Count 4.66 M/UL (4.20-5.40) 4.18 M/UL (4.20-5.40) 4.29 M/UL (4.20-5.40) Hemoglobin 15.7 G/DL (12.0-16.0) 14.2 G/DL (12.0-16.0) 14.4 G/DL (12.0-16.0) Hematocrit 43.4 % (37.0-47.0) 40.9 % (37.0-47.0) 41.9 % (37.0-47.0) Mean Corpuscular Volume 93 FL (80-99) 98 FL (80-99) 98 FL (80-99) Mean Corpuscular Hemoglobin 33.8 PG (27.0-31.0) 34.0 PG (27.0-31.0) 33.5 PG (27.0-31.0) Mean Corpuscular Hemoglobin Concent 36.3 G/DL (32.0-36.0) 34.8 G/DL (32.0-36.0) 34.3 G/DL (32.0-36.0) Red Cell Distribution Width 11.0 % (11.6-14.8) 11.5 % (11.6-14.8) 11.6 % (11.6-14.8) Platelet Count 159 K/UL (150-450) 156 K/UL (150-450) 139 K/UL (150-450) Mean Platelet Volume 6.2 FL (6.5-10.1) 7.1 FL (6.5-10.1) 7.6 FL (6.5-10.1) Neutrophils (%) (Auto) % (45.0-75.0) % (45.0-75.0) 82.4 % (45.0-75.0) Lymphocytes (%) (Auto) % (20.0-45.0) % (20.0-45.0) 7.9 % (20.0-45.0) Monocytes (%) (Auto) % (1.0-10.0) % (1.0-10.0) 9.2 % (1.0-10.0) Eosinophils (%) (Auto) % (0.0-3.0) % (0.0-3.0) 0.1 % (0.0-3.0) Basophils (%) (Auto) % (0.0-2.0) % (0.0-2.0) 0.4 % (0.0-2.0) Differential Total Cells Counted 100 100 Neutrophils % (Manual) 81 % (45-75) 83 % (45-75) Lymphocytes % (Manual) 8 % (20-45) 10 % (20-45) Monocytes % (Manual) 5 % (1-10) 7 % (1-10) Eosinophils % (Manual) 0 % (0-3) 0 % (0-3) Basophils % (Manual) 0 % (0-2) 0 % (0-2) Band Neutrophils 6 % (0-8) 0 % (0-8) Platelet Estimate Adequate Adequate Platelet Morphology Normal Normal Red Blood Cell Morphology Normal Normal Sodium Level 132 MMOL/L (136-145) 135 MMOL/L (136-145) 141 MMOL/L (136-145) Potassium Level 3.8 MMOL/L (3.5-5.1) 3.8 MMOL/L (3.5-5.1) 3.9 MMOL/L (3.5-5.1) Chloride Level 99 MMOL/L (98-107) 105 MMOL/L (98-107) 108 MMOL/L (98-107) Carbon Dioxide Level 22 MMOL/L (21-32) 20 MMOL/L (21-32) 24 MMOL/L (21-32) Anion Gap 11 mmol/L (5-15) 10 mmol/L (5-15) 10 mmol/L (5-15) Blood Urea Nitrogen 20 mg/dL (7-18) 16 mg/dL (7-18) 11 mg/dL (7-18) Creatinine 1.4 MG/DL (0.55-1.30) 1.2 MG/DL (0.55-1.30) 1.1 MG/DL (0.55-1.30) Estimat Glomerular Filtration Rate 45.3 mL/min (>60) 54.2 mL/min (>60) 59.9 mL/min (>60) Glucose Level 103 MG/DL (74-106) 96 MG/DL (74-106) 92 MG/DL (74-106) Lactic Acid Level 1.10 mmol/L (0.4-2.0) Calcium Level 9.2 MG/DL (8.5-10.1) 8.3 MG/DL (8.5-10.1) 8.6 MG/DL (8.5-10.1) Total Bilirubin 0.3 MG/DL (0.2-1.0) 0.3 MG/DL (0.2-1.0) 0.4 MG/DL (0.2-1.0) Aspartate Amino Transf (AST/SGOT) 27 U/L (15-37) 36 U/L (15-37) 34 U/L (15-37) Alanine Aminotransferase (ALT/SGPT) 18 U/L (12-78) 16 U/L (12-78) 21 U/L (12-78) Alkaline Phosphatase 63 U/L (46-116) 54 U/L (46-116) 60 U/L (46-116) Troponin I 0.026 ng/mL (0.000-0.056) Total Protein 7.6 G/DL (6.4-8.2) 6.4 G/DL (6.4-8.2) 6.7 G/DL (6.4-8.2) Albumin 3.3 G/DL (3.4-5.0) 2.6 G/DL (3.4-5.0) 2.5 G/DL (3.4-5.0) Globulin 4.3 g/dL 3.8 g/dL 4.2 g/dL Albumin/Globulin Ratio 0.8 (1.0-2.7) 0.7 (1.0-2.7) 0.6 (1.0-2.7) Urine Color Pale yellow Urine Appearance Slightly cloudy Urine pH 6 (4.5-8.0) Urine Specific [place] 1.015 (1.005-1.035) Urine Protein 2+ (NEGATIVE) Urine Glucose (UA) Negative (NEGATIVE) Urine Ketones Negative (NEGATIVE) Urine Blood 5+ (NEGATIVE) Urine Nitrite Negative (NEGATIVE) Urine Bilirubin Negative (NEGATIVE) Urine Urobilinogen Normal MG/DL (0.0-1.0) Urine Leukocyte Esterase 2+ (NEGATIVE) Urine RBC 10-15 /HPF (0 - 2) Urine WBC 10-15 /HPF (0 - 2) Urine Squamous Epithelial Cells Few /LPF (NONE/OCC) Urine Bacteria Moderate /HPF (NONE) Hemoglobin A1c 6.0 % (4.3-6.0) Triglycerides Level 83 MG/DL (30-150) Cholesterol Level 131 MG/DL (< 200) LDL Cholesterol 73 mg/dL (<100) HDL Cholesterol 36 MG/DL (40-60) Cholesterol/HDL Ratio 3.6 (3.3-4.4) Thyroid Stimulating Hormone (TSH) 0.281 uiU/mL (0.358-3.740) Height (Feet): 5 Height (Inches): 6.00 Weight (Pounds): 106 Objective Physical Exam: Vitals: reviewed General Appearance: NAD HEENT: normocephalic, atraumatic Neck: non-tender, normal alignment Respiratory/Chest: normal breath sounds bilaterally Cardiovascular/Chest: normal peripheral pulses, normal rate Abdomen: normal bowel sounds, soft, nontender Extremities: ++ left elbow wound with opening deep to the bone , and mild draining Rao Wagner MD Apr 14, 2019 15:36
[2019-04-14 16:00] VITALS: BP 127/61
--- NOTE | 2019-04-14 16:35 | Infectious Diseases Prog Note ---
Assessment/Plan Problems: (1) Wound, open, elbow Assessment & Plan: infected with staph aureus, with no evidence of underlying osteomyelitis on MRI, continue current antibiotics treatment with local wound care , recommend ortho eval for the left elbow joint to rule out septic joint (2) Cellulitis of left elbow Assessment & Plan: already on wide spectrum antibiotics pending cultures (3) UTI (urinary tract infection) Assessment & Plan: already on zosyn pending culture (4) Leukocytosis Assessment & Plan: rule out sepsis , continue wide spectrum antibiotics pending blood culture Subjective Constitutional: Reports: no symptoms HEENT: Reports: no symptoms Respiratory: Reports: no symptoms Breasts: Reports: no symptoms Cardiovascular: Reports: no symptoms Gastrointestinal/Abdominal: Reports: no symptoms Genitourinary: Reports: no symptoms Neurologic: Reports: no symptoms Psychiatric: Reports: no symptoms Skin: Reports: ulcer, other - red and inflammed Endocrine: Reports: no symptoms Hematologic: Reports: no symptoms Musculoskeletal: Reports: no symptoms Allergies: Coded Allergies: No Known Allergies (Unverified , 04/12/19) Objective Vital Signs Last 24 Hour Vital Signs Date Time Temp Pulse Resp B/P (MAP) Pulse Ox O2 Delivery O2 Flow Rate FiO2 04/14/19 16:00 98.0 92 20 127/61 (83) 97 04/14/19 12:00 98.9 84 18 132/78 (96) 94 04/14/19 08:14 Room Air 04/14/19 08:04 97.8 63 20 91/55 (67) 92 04/14/19 04:00 99.7 80 18 129/80 (96) 91 04/14/19 00:00 99.8 97 16 136/73 (94) 97 04/13/19 21:00 Room Air 04/13/19 20:00 100.1 87 17 116/72 (87) 92 Height (Feet): 5 Height (Inches): 6.00 Weight (Pounds): 106 General Appearance: WD/WN, no acute distress HEENT: normocephalic, atraumatic, anicteric, mucous membranes moist, PERRL Respiratory/Chest: chest wall non-tender, lungs clear, normal breath sounds, no respiratory distress, no accessory muscle use Cardiovascular: normal peripheral pulses, normal rate, regular rhythm, no gallop/murmur, no JVD Abdomen: normal bowel sounds, soft, non tender, no organomegaly, non distended , no mass, no scars Genitourinary: normal external genitalia Extremities: no cyanosis, no clubbing Skin: no rash, no lesions, no ulcers Neurologic/Psychiatric: alert, responsive Lymphatic: no neck adenopathy, no groin adenopathy Musculoskeletal: normal muscle bulk, no effusion Microbiology Date/Time Source Procedure Growth Status 04/12/19 22:30 Blood Blood Culture - Preliminary Resulted 04/12/19 22:15 Blood Blood Culture - Preliminary NO GROWTH AFTER 24 HOURS Resulted 04/12/19 23:05 Other(Specify in comment) Gram Stain Pending Resulted 04/12/19 23:05 Wound Culture - Preliminary Staphylococcus Aureus Resulted 04/12/19 23:20 Urine,Clean Catch Urine Culture - Preliminary Mixed Gram Positive Organism Resulted Laboratory Tests Test 04/14/19 05:15 White Blood Count 12.3 K/UL (4.8-10.8) H Red Blood Count 4.29 M/UL (4.20-5.40) Hemoglobin 14.4 G/DL (12.0-16.0) Hematocrit 41.9 % (37.0-47.0) Mean Corpuscular Volume 98 FL (80-99) Mean Corpuscular Hemoglobin 33.5 PG (27.0-31.0) H Mean Corpuscular Hemoglobin Concent 34.3 G/DL (32.0-36.0) Red Cell Distribution Width 11.6 % (11.6-14.8) Platelet Count 139 K/UL (150-450) L Mean Platelet Volume 7.6 FL (6.5-10.1) Neutrophils (%) (Auto) 82.4 % (45.0-75.0) H Lymphocytes (%) (Auto) 7.9 % (20.0-45.0) L Monocytes (%) (Auto) 9.2 % (1.0-10.0) Eosinophils (%) (Auto) 0.1 % (0.0-3.0) Basophils (%) (Auto) 0.4 % (0.0-2.0) Sodium Level 141 MMOL/L (136-145) Potassium Level 3.9 MMOL/L (3.5-5.1) Chloride Level 108 MMOL/L (98-107) H Carbon Dioxide Level 24 MMOL/L (21-32) Anion Gap 10 mmol/L (5-15) Blood Urea Nitrogen 11 mg/dL (7-18) Creatinine 1.1 MG/DL (0.55-1.30) Estimat Glomerular Filtration Rate 59.9 mL/min (>60) Glucose Level 92 MG/DL (74-106) Calcium Level 8.6 MG/DL (8.5-10.1) Total Bilirubin 0.4 MG/DL (0.2-1.0) Aspartate Amino Transf (AST/SGOT) 34 U/L (15-37) Alanine Aminotransferase (ALT/SGPT) 21 U/L (12-78) Alkaline Phosphatase 60 U/L (46-116) Total Protein 6.7 G/DL (6.4-8.2) Albumin 2.5 G/DL (3.4-5.0) L Globulin 4.2 g/dL Albumin/Globulin Ratio 0.6 (1.0-2.7) L Hepatitis A IgM Antibody Pending Hepatitis B Surface Antigen Pending Hepatitis B Core IgM Antibody Pending Hepatitis C Antibody Pending HIV (1&2) Antibody Rapid Negative (NEGATIVE) Current Medications Medications (Trade) Dose Ordered Sig/Kedar Route PRN Reason Start Time Stop Time Status Last Admin Dose Admin Acetaminophen (Tylenol) 650 mg Q4H PRN ORAL Mild Pain/Temp > 100.5 04/13/19 02:45 05/13/19 02:44 04/13/19 03:32 Acetaminophen/ Hydrocodone Bitart ([place] 5/325) 1 tab Q4H PRN ORAL Breakthrough Pain 04/13/19 02:45 04/20/19 02:44 Gadobutrol (Gadavist) 7.5 mmol NOW PRN IV Radiology Procedure 04/13/19 11:45 04/17/19 11:41 Pantoprazole (Protonix) 40 mg DAILY ORAL 04/13/19 09:00 05/13/19 08:59 04/14/19 08:31 Piperacillin Sod/ Tazobactam Sod 3.375 gm/Sodium Chloride 110 ml @ 27.5 mls/hr EVERY 8 HOURS IVPB 04/13/19 06:00 04/20/19 05:59 04/14/19 13:41 Vancomycin HCl (Vanco rx to dose) 1 ea DAILY PRN MISC Per rx protocol 04/13/19 02:45 05/13/19 02:44 Vancomycin HCl 750 mg/Sodium Chloride 275 ml @ 183.333 mls/hr Q24H IVPB 04/13/19 21:00 04/18/19 20:59 04/13/19 20:45 Sharath Figueroa M.D. Apr 14, 2019 16:35
--- NOTE | 2019-04-14 19:07 | NUR ---
NURSE NOTES: resting. in no apparent distress.
--- NOTE | 2019-04-14 19:08 | NUR ---
HAND-OFF: Report given to James BURRIS RN.
--- NOTE | 2019-04-14 19:18 | General Progress Note ---
Assessment/Plan Status: stable Assessment/Plan: S: I am feeling better O: Denies pain , wound appropratedly dressed PHYSICAL EXAMINATION:HEAD AND NECK: Atraumatic and normocephalic. CHEST: Clear to auscultation. No wheezing. HEART: S1, S2. Regular rate and rhythm. ABDOMEN: Soft. No organomegaly.MUSCULOSKELETAL: Positive for the areas of the redness, swelling, and tenderness on the overlying left elbow.NEUROLOGIC: The patient is awake, alert , and oriented x3. LABORATORY DATA: Dated 04/12/2019 shows sodium is 132, potassium 3.8, and creatinine 1.4. WBC 17.8 and platelets 159,000. Urinalysis shows 15 wbc's, negative for nitrite. Meds: Reviwed and reconciled ASSESSMENT: 1. Severe sepsis. 2. Cellulitis/abscess formation on the left forearm. 3. Hyponatremia. 4. Acute renal failure. 5. GI and DVT prophylaxes. 6. Urinary tract infection. PLAN OF CARE: current abx advised patient against early AMA, she agreed for now Subjective Allergies: Coded Allergies: No Known Allergies (Unverified , 04/12/19) Objective Last 24 Hour Vital Signs Date Time Temp Pulse Resp B/P (MAP) Pulse Ox O2 Delivery O2 Flow Rate FiO2 04/14/19 16:00 98.0 92 20 127/61 (83) 97 04/14/19 12:00 98.9 84 18 132/78 (96) 94 04/14/19 08:14 Room Air 04/14/19 08:04 97.8 63 20 91/55 (67) 92 04/14/19 04:00 99.7 80 18 129/80 (96) 91 04/14/19 00:00 99.8 97 16 136/73 (94) 97 04/13/19 21:00 Room Air 04/13/19 20:00 100.1 87 17 116/72 (87) 92 Intake and Output 04/13/19 04/14/19 19:00 07:00 Intake Total 500 ml 505.000 ml Balance 500 ml 505.000 ml Intake Oral 500 ml 120 ml IV Total 385.000 ml # Voids 2 1 Laboratory Tests 04/14/19 05:15: White Blood Count 12.3H, Red Blood Count 4.29, Hemoglobin 14.4, Hematocrit 41.9 , Mean Corpuscular Volume 98, Mean Corpuscular Hemoglobin 33.5H, Mean Corpuscular Hemoglobin Concent 34.3, Red Cell Distribution Width 11.6, Platelet Count 139L, Mean Platelet Volume 7.6, Neutrophils (%) (Auto) 82.4H, Lymphocytes (%) (Auto) 7.9L, Monocytes (%) (Auto) 9.2, Eosinophils (%) (Auto) 0.1, Basophils (%) (Auto) 0.4, Sodium Level 141, Potassium Level 3.9, Chloride Level 108H, Carbon Dioxide Level 24, Anion Gap 10, Blood Urea Nitrogen 11, Creatinine 1.1, Estimat Glomerular Filtration Rate 59.9, Glucose Level 92, Calcium Level 8.6, Total Bilirubin 0.4, Aspartate Amino Transf (AST/SGOT) 34, Alanine Aminotransferase (ALT/SGPT) 21, Alkaline Phosphatase 60, Total Protein 6.7, Albumin 2.5L, Globulin 4.2, Albumin/Globulin Ratio 0.6L, Hepatitis A IgM Antibody [Pending], Hepatitis B Surface Antigen [Pending], Hepatitis B Core IgM Antibody [Pending], Hepatitis C Antibody [Pending], HIV (1&2) Antibody Rapid Negative Height (Feet): 5 Height (Inches): 6.00 Weight (Pounds): 106 Gary Pedersen MD Apr 14, 2019 19:18
--- NOTE | 2019-04-14 19:30 | NUR ---
NURSE NOTES: Received report from GEORGE Pollack. Received pt in bed, AOx4, denies any pain, no distress noted. L elbow dressing C/D/I. IV L AC patent and intact. Bed in lowest position and locked, side rails up x 2, call light within reach. Will continue to monitor.
[2019-04-14 20:00] VITALS: BP 126/64
--- NOTE | 2019-04-14 20:30 | NUR ---
NURSE NOTES: Agustin from pharmacy called regarding Vanco trough result 2.3. Per william Swift to give Vanco 750mg IV.
[2019-04-14] MEDS: Vancomycin 750mg/NS 275ml IVPB SCH ×2 (21:41)
--- NOTE | 2019-04-15 02:15 | NUR ---
NURSE NOTES: Received call from Nasim Page (Microbiology department) pt 's wound culture Left elbow positive for MRSA. PENG Daily made aware.
[2019-04-15] MEDS: Piperacillin/Tazobactam 3.375 GM in NS 110 ML IVPB SCH (05:35)
--- NOTE | 2019-04-15 06:00 | NUR ---
NURSE NOTES: Per PENG Norman no need to notify PMD of wound culture result positive for MRSA.
[2019-04-15 06:18] VITALS: BP 138/81
[2019-04-15 06:51] LABS: BASOPHILS % (AUTO) 0.7 % (0.0-2.0); EOSINOPHILS % (AUTO) 0.7 % (0.0-3.0); HEMATOCRIT 43.3 % (37.0-47.0); HEMOGLOBIN 14.6 G/DL (12.0-16.0); LYMPHOCYTES % (AUTO) 9.2 % (20.0-45.0); MEAN CORPUSCULAR VOLUME 98 FL (80-99); MONOCYTES % (AUTO) 11.1 % (1.0-10.0); NEUTROPHILS % (AUTO) 78.2 % (45.0-75.0); PLATELET COUNT 169 K/UL (150-450); RED BLOOD COUNT 4.42 M/UL (4.20-5.40); RED CELL DISTRIBUTION WIDTH 11.5 % (11.6-14.8); WHITE BLOOD COUNT 11.9 K/UL (4.8-10.8)
[2019-04-15 07:16] LABS: ALANINE AMINOTRANSFERASE 43 U/L (12-78); ALBUMIN 2.5 G/DL (3.4-5.0); ALBUMIN/GLOBULIN RATIO 0.6 (1.0-2.7); ALKALINE PHOSPHATASE 61 U/L (46-116); ANION GAP 10 mmol/L (5-15); ASPARTATE AMINO TRANSFERASE 52 U/L (15-37); BILIRUBIN,TOTAL 0.5 MG/DL (0.2-1.0); BLOOD UREA NITROGEN 9 mg/dL (7-18); CALCIUM 8.5 MG/DL (8.5-10.1); CARBON DIOXIDE 24 MMOL/L (21-32); CHLORIDE 107 MMOL/L (98-107); POTASSIUM 3.9 MMOL/L (3.5-5.1); SODIUM 141 MMOL/L (136-145)
--- NOTE | 2019-04-15 07:39 | NUR ---
HAND-OFF: Report given to GEORGE Prieto. Pt in stable conditoion.
--- NOTE | 2019-04-15 07:41 | NUR ---
NURSE NOTES: Pt currently sleeping , transfer pending to [facility] due to positive wound culture. Call light in reach
[2019-04-15 08:00] VITALS: BP 117/74
--- NOTE | 2019-04-15 08:03 | NUR ---
NURSE NOTES: Pt informed of results of culture and pending transfer to unit 4.
[2019-04-15] MEDS: Vancomycin 750mg/NS 275ml IVPB SCH ×2 (10:20)
--- NOTE | 2019-04-15 10:20 | NUR ---
NURSE NOTES: Patient received transfer from . Patient is alert and oriented. Breathing unlabored on room air. Belongings reviewed and confirmed with the patient at bedside. 0900 medications administered.
--- NOTE | 2019-04-15 10:30 | NUR ---
NURSE NOTES: Pt transferred to [facility] due mrsa , Report given to Ashlyn, to the wound on left elbow. Pt belligerent. " While you are pushing up there push me out the door" " I am going to leave if the Dr doesn't come , what time does he makes he come?" Pt made aware that nurses do not know Dr schedules , but the Drs usually round daily. Informed of plan of care did not change and if she had orders for discharge or if the Dr spoke to her in regards to discharging her , it will still occur , but on the floor she is being transferred to. Brother called earlier in inquiring about pt status, informed of [place] regulations, and that documentation writer would have to seek , permission. " Why are you giving me problems, go ask her then" Supervisor [employer] asked pt if information could be released . She stated" Tell him to hang up the phone, and will call him. Pt verbalized that she would answer all his questions
--- NOTE | 2019-04-15 11:03 | General Progress Note ---
Assessment/Plan Status: stable Assessment/Plan: S: I am feeling better O: Denies pain , wound appropratedly dressed PHYSICAL EXAMINATION:HEAD AND NECK: Atraumatic and normocephalic. CHEST: Clear to auscultation. No wheezing. HEART: S1, S2. Regular rate and rhythm. ABDOMEN: Soft. No organomegaly.MUSCULOSKELETAL: Positive for the areas of the redness, swelling, and tenderness on the overlying left elbow.NEUROLOGIC: The patient is awake, alert , and oriented x3. LABORATORY DATA: Dated 04/12/2019 shows sodium is 132, potassium 3.8, and creatinine 1.4. WBC 17.8 and platelets 159,000. Urinalysis shows 15 wbc's, negative for nitrite. Meds: Reviwed and reconciled ASSESSMENT: 1. Severe sepsis. 2. Cellulitis/abscess formation on the left forearm. 3. Hyponatremia. 4. Acute renal failure. 5. GI and DVT prophylaxes. 6. Urinary tract infection. PLAN OF CARE: luis felipe second antibiogram advised patient against early AMA, she agreed for now Subjective Allergies: Coded Allergies: No Known Allergies (Unverified , 04/12/19) Objective Last 24 Hour Vital Signs Date Time Temp Pulse Resp B/P (MAP) Pulse Ox O2 Delivery O2 Flow Rate FiO2 04/15/19 06:18 97.9 84 18 138/81 (100) 93 04/14/19 21:00 Room Air 04/14/19 20:00 99.7 83 17 126/64 (84) 93 04/14/19 16:00 98.0 92 20 127/61 (83) 97 04/14/19 12:00 98.9 84 18 132/78 (96) 94 Intake and Output 04/14/19 04/15/19 19:00 07:00 Intake Total 710 ml 540.00 ml Balance 710 ml 540.00 ml Intake Oral 600 ml 100 ml IV Total 110 ml 440.00 ml # Voids 2 2 Laboratory Tests 04/14/19 19:42: Vancomycin Level Trough 2.3L 04/15/19 05:15: White Blood Count 11.9H, Red Blood Count 4.42, Hemoglobin 14.6, Hematocrit 43.3 , Mean Corpuscular Volume 98, Mean Corpuscular Hemoglobin 33.2H, Mean Corpuscular Hemoglobin Concent 33.8, Red Cell Distribution Width 11.5L, Platelet Count 169, Mean Platelet Volume 8.0, Neutrophils (%) (Auto) 78.2H, Lymphocytes (%) (Auto) 9.2L, Monocytes (%) (Auto) 11.1H, Eosinophils (%) (Auto) 0.7, Basophils (%) (Auto) 0.7, Sodium Level 141, Potassium Level 3.9, Chloride Level 107, Carbon Dioxide Level 24, Anion Gap 10, Blood Urea Nitrogen 9, Creatinine 1.0, Estimat Glomerular Filtration Rate > 60, Glucose Level 100, Calcium Level 8.5, Total Bilirubin 0.5, Aspartate Amino Transf (AST/SGOT) 52H, Alanine Aminotransferase (ALT/SGPT) 43, Alkaline Phosphatase 61, Total Protein 6.7, Albumin 2.5L, Globulin 4.2, Albumin/Globulin Ratio 0.6L Height (Feet): 5 Height (Inches): 6.00 Weight (Pounds): 106 Gary Pedersen MD Apr 15, 2019 11:03
[2019-04-15 12:00] VITALS: BP 126/87
--- NOTE | 2019-04-15 12:22 | Hematology/Onc Progress Note ---
Assessment/Plan Assessment/Plan # Thrombocytopenia - potential causes multifactorial, evaluate liver and viral etiologies to begin, also could be related to underlying medications patient has received. (can be due to zosyn) --> Hep panel pending, HIV negative --> US abd to evaluate if plt further downtrending --> Peripheral smear ordered to evaluate for blasts /schistocytes --> abx and other meds have been reviewed --> ok for ppx if plt >50k w/ either heparin or lovenox --> at this time have started pt on scds --> ok to continue abx --> plt trend: 169 # Leukocytosis iwth elbow infection, at this time, continue current antibiotics treatment with local wound care --> id is following, appreciate recs --> smear reviewed and no blasts noted --> cont abx --> wbc trend: 11.9 # Cellulitis of left elbow --> per id /surg, on abx # UTI (urinary tract infection) --> urine cx positive # Dvt ppx scds The timing of this note does not necessarily reflect the time of the patient was seen. Greatly appreciate consultation. Subjective Allergies: Coded Allergies: No Known Allergies (Unverified , 04/12/19) Subjective 04/14: labs have been reviewed, hiv and hep ordered, rlovenox was dced 04/15: awake and alert, mrsa positive, pending transfer to unit 4, on abx Objective Objective Current Medications Medications (Trade) Dose Ordered Sig/Kedar Route PRN Reason Start Time Stop Time Status Last Admin Dose Admin Acetaminophen (Tylenol) 650 mg Q4H PRN ORAL Mild Pain/Temp > 100.5 04/13/19 02:45 05/13/19 02:44 04/13/19 03:32 Acetaminophen/ Hydrocodone Bitart ([place] 5/325) 1 tab Q4H PRN ORAL Breakthrough Pain 04/13/19 02:45 04/20/19 02:44 Gadobutrol (Gadavist) 7.5 mmol NOW PRN IV Radiology Procedure 04/13/19 11:45 04/17/19 11:41 Pantoprazole (Protonix) 40 mg DAILY ORAL 04/13/19 09:00 05/13/19 08:59 04/15/19 10:20 Piperacillin Sod/ Tazobactam Sod 3.375 gm/Sodium Chloride 110 ml @ 27.5 mls/hr EVERY 8 HOURS IVPB 04/13/19 06:00 04/20/19 05:59 04/15/19 05:35 Vancomycin HCl (Vanco rx to dose) 1 ea DAILY PRN MISC Per rx protocol 04/13/19 02:45 05/13/19 02:44 Vancomycin HCl 750 mg/Sodium Chloride 275 ml @ 183.333 mls/hr Q12HR IVPB 04/14/19 21:00 04/19/19 20:59 04/15/19 10:20 Last 24 Hour Vital Signs Date Time Temp Pulse Resp B/P (MAP) Pulse Ox O2 Delivery O2 Flow Rate FiO2 04/15/19 09:00 Room Air 04/15/19 08:00 97.3 90 18 117/74 (88) 04/15/19 06:18 97.9 84 18 138/81 (100) 93 04/14/19 21:00 Room Air 04/14/19 20:00 99.7 83 17 126/64 (84) 93 04/14/19 16:00 98.0 92 20 127/61 (83) 97 04/14/19 12:00 98.9 84 18 132/78 (96) 94 04/14/19 08:14 Room Air 04/14/19 08:04 97.8 63 20 91/55 (67) 92 04/14/19 04:00 99.7 80 18 129/80 (96) 91 04/14/19 00:00 99.8 97 16 136/73 (94) 97 04/13/19 21:00 Room Air 04/13/19 20:00 100.1 87 17 116/72 (87) 92 04/13/19 16:00 98.1 79 19 119/72 (88) 97 Intake and Output 04/14/19 04/15/19 19:00 07:00 Intake Total 710 ml 540.00 ml Balance 710 ml 540.00 ml Intake Oral 600 ml 100 ml IV Total 110 ml 440.00 ml # Voids 2 2 Labs Test 04/12/19 22:30 04/12/19 23:20 04/13/19 05:35 04/14/19 05:15 White Blood Count 17.8 K/UL (4.8-10.8) 17.5 K/UL (4.8-10.8) 12.3 K/UL (4.8-10.8) Red Blood Count 4.66 M/UL (4.20-5.40) 4.18 M/UL (4.20-5.40) 4.29 M/UL (4.20-5.40) Hemoglobin 15.7 G/DL (12.0-16.0) 14.2 G/DL (12.0-16.0) 14.4 G/DL (12.0-16.0) Hematocrit 43.4 % (37.0-47.0) 40.9 % (37.0-47.0) 41.9 % (37.0-47.0) Mean Corpuscular Volume 93 FL (80-99) 98 FL (80-99) 98 FL (80-99) Mean Corpuscular Hemoglobin 33.8 PG (27.0-31.0) 34.0 PG (27.0-31.0) 33.5 PG (27.0-31.0) Mean Corpuscular Hemoglobin Concent 36.3 G/DL (32.0-36.0) 34.8 G/DL (32.0-36.0) 34.3 G/DL (32.0-36.0) Red Cell Distribution Width 11.0 % (11.6-14.8) 11.5 % (11.6-14.8) 11.6 % (11.6-14.8) Platelet Count 159 K/UL (150-450) 156 K/UL (150-450) 139 K/UL (150-450) Mean Platelet Volume 6.2 FL (6.5-10.1) 7.1 FL (6.5-10.1) 7.6 FL (6.5-10.1) Neutrophils (%) (Auto) % (45.0-75.0) % (45.0-75.0) 82.4 % (45.0-75.0) Lymphocytes (%) (Auto) % (20.0-45.0) % (20.0-45.0) 7.9 % (20.0-45.0) Monocytes (%) (Auto) % (1.0-10.0) % (1.0-10.0) 9.2 % (1.0-10.0) Eosinophils (%) (Auto) % (0.0-3.0) % (0.0-3.0) 0.1 % (0.0-3.0) Basophils (%) (Auto) % (0.0-2.0) % (0.0-2.0) 0.4 % (0.0-2.0) Differential Total Cells Counted 100 100 Neutrophils % (Manual) 81 % (45-75) 83 % (45-75) Lymphocytes % (Manual) 8 % (20-45) 10 % (20-45) Monocytes % (Manual) 5 % (1-10) 7 % (1-10) Eosinophils % (Manual) 0 % (0-3) 0 % (0-3) Basophils % (Manual) 0 % (0-2) 0 % (0-2) Band Neutrophils 6 % (0-8) 0 % (0-8) Platelet Estimate Adequate Adequate Platelet Morphology Normal Normal Red Blood Cell Morphology Normal Normal Sodium Level 132 MMOL/L (136-145) 135 MMOL/L (136-145) 141 MMOL/L (136-145) Potassium Level 3.8 MMOL/L (3.5-5.1) 3.8 MMOL/L (3.5-5.1) 3.9 MMOL/L (3.5-5.1) Chloride Level 99 MMOL/L (98-107) 105 MMOL/L (98-107) 108 MMOL/L (98-107) Carbon Dioxide Level 22 MMOL/L (21-32) 20 MMOL/L (21-32) 24 MMOL/L (21-32) Anion Gap 11 mmol/L (5-15) 10 mmol/L (5-15) 10 mmol/L (5-15) Blood Urea Nitrogen 20 mg/dL (7-18) 16 mg/dL (7-18) 11 mg/dL (7-18) Creatinine 1.4 MG/DL (0.55-1.30) 1.2 MG/DL (0.55-1.30) 1.1 MG/DL (0.55-1.30) Estimat Glomerular Filtration Rate 45.3 mL/min (>60) 54.2 mL/min (>60) 59.9 mL/min (>60) Glucose Level 103 MG/DL (74-106) 96 MG/DL (74-106) 92 MG/DL (74-106) Lactic Acid Level 1.10 mmol/L (0.4-2.0) Calcium Level 9.2 MG/DL (8.5-10.1) 8.3 MG/DL (8.5-10.1) 8.6 MG/DL (8.5-10.1) Total Bilirubin 0.3 MG/DL (0.2-1.0) 0.3 MG/DL (0.2-1.0) 0.4 MG/DL (0.2-1.0) Aspartate Amino Transf (AST/SGOT) 27 U/L (15-37) 36 U/L (15-37) 34 U/L (15-37) Alanine Aminotransferase (ALT/SGPT) 18 U/L (12-78) 16 U/L (12-78) 21 U/L (12-78) Alkaline Phosphatase 63 U/L (46-116) 54 U/L (46-116) 60 U/L (46-116) Troponin I 0.026 ng/mL (0.000-0.056) Total Protein 7.6 G/DL (6.4-8.2) 6.4 G/DL (6.4-8.2) 6.7 G/DL (6.4-8.2) Albumin 3.3 G/DL (3.4-5.0) 2.6 G/DL (3.4-5.0) 2.5 G/DL (3.4-5.0) Globulin 4.3 g/dL 3.8 g/dL 4.2 g/dL Albumin/Globulin Ratio 0.8 (1.0-2.7) 0.7 (1.0-2.7) 0.6 (1.0-2.7) Urine Color Pale yellow Urine Appearance Slightly cloudy Urine pH 6 (4.5-8.0) Urine Specific [place] 1.015 (1.005-1.035) Urine Protein 2+ (NEGATIVE) Urine Glucose (UA) Negative (NEGATIVE) Urine Ketones Negative (NEGATIVE) Urine Blood 5+ (NEGATIVE) Urine Nitrite Negative (NEGATIVE) Urine Bilirubin Negative (NEGATIVE) Urine Urobilinogen Normal MG/DL (0.0-1.0) Urine Leukocyte Esterase 2+ (NEGATIVE) Urine RBC 10-15 /HPF (0 - 2) Urine WBC 10-15 /HPF (0 - 2) Urine Squamous Epithelial Cells Few /LPF (NONE/OCC) Urine Bacteria Moderate /HPF (NONE) Hemoglobin A1c 6.0 % (4.3-6.0) Triglycerides Level 83 MG/DL (30-150) Cholesterol Level 131 MG/DL (< 200) LDL Cholesterol 73 mg/dL (<100) HDL Cholesterol 36 MG/DL (40-60) Cholesterol/HDL Ratio 3.6 (3.3-4.4) Thyroid Stimulating Hormone (TSH) 0.281 uiU/mL (0.358-3.740) HIV (1&2) Antibody Rapid Negative (NEGATIVE) Test 04/14/19 19:42 04/15/19 05:15 Vancomycin Level Trough 2.3 ug/mL (5.0-12.0) White Blood Count 11.9 K/UL (4.8-10.8) Red Blood Count 4.42 M/UL (4.20-5.40) Hemoglobin 14.6 G/DL (12.0-16.0) Hematocrit 43.3 % (37.0-47.0) Mean Corpuscular Volume 98 FL (80-99) Mean Corpuscular Hemoglobin 33.2 PG (27.0-31.0) Mean Corpuscular Hemoglobin Concent 33.8 G/DL (32.0-36.0) Red Cell Distribution Width 11.5 % (11.6-14.8) Platelet Count 169 K/UL (150-450) Mean Platelet Volume 8.0 FL (6.5-10.1) Neutrophils (%) (Auto) 78.2 % (45.0-75.0) Lymphocytes (%) (Auto) 9.2 % (20.0-45.0) Monocytes (%) (Auto) 11.1 % (1.0-10.0) Eosinophils (%) (Auto) 0.7 % (0.0-3.0) Basophils (%) (Auto) 0.7 % (0.0-2.0) Sodium Level 141 MMOL/L (136-145) Potassium Level 3.9 MMOL/L (3.5-5.1) Chloride Level 107 MMOL/L (98-107) Carbon Dioxide Level 24 MMOL/L (21-32) Anion Gap 10 mmol/L (5-15) Blood Urea Nitrogen 9 mg/dL (7-18) Creatinine 1.0 MG/DL (0.55-1.30) Estimat Glomerular Filtration Rate > 60 mL/min (>60) Glucose Level 100 MG/DL (74-106) Calcium Level 8.5 MG/DL (8.5-10.1) Total Bilirubin 0.5 MG/DL (0.2-1.0) Aspartate Amino Transf (AST/SGOT) 52 U/L (15-37) Alanine Aminotransferase (ALT/SGPT) 43 U/L (12-78) Alkaline Phosphatase 61 U/L (46-116) Total Protein 6.7 G/DL (6.4-8.2) Albumin 2.5 G/DL (3.4-5.0) Globulin 4.2 g/dL Albumin/Globulin Ratio 0.6 (1.0-2.7) Height (Feet): 5 Height (Inches): 6.00 Weight (Pounds): 106 Objective Physical Exam: Vitals: reviewed General Appearance: NAD HEENT: normocephalic, atraumatic Neck: non-tender, normal alignment Respiratory/Chest: normal breath sounds bilaterally Cardiovascular/Chest: normal peripheral pulses, normal rate Abdomen: normal bowel sounds, soft, nontender Extremities: ++ left elbow wound with opening deep to the bone , and mild draining Rao Wagner MD Apr 15, 2019 12:22
--- NOTE | 2019-04-15 12:31 | Surgery Progress Note ---
Surgery Progress Note Subjective Additional Comments no acute events comfortable stable labs improving on abx Objective Last 24 Hour Vital Signs Date Time Temp Pulse Resp B/P (MAP) Pulse Ox O2 Delivery O2 Flow Rate FiO2 04/15/19 09:00 Room Air 04/15/19 08:00 97.3 90 18 117/74 (88) 04/15/19 06:18 97.9 84 18 138/81 (100) 93 04/14/19 21:00 Room Air 04/14/19 20:00 99.7 83 17 126/64 (84) 93 04/14/19 16:00 98.0 92 20 127/61 (83) 97 I&O Intake and Output 04/14/19 04/15/19 19:00 07:00 Intake Total 710 ml 540.00 ml Balance 710 ml 540.00 ml Intake Oral 600 ml 100 ml IV Total 110 ml 440.00 ml # Voids 2 2 Dressing: saturated Wound: clean Drains: none Cardiovascular: RSR Respiratory: clear Abdomen: soft, non-tender, present bowel sounds Extremities: edema, tenderness, no cyanosis, other Laboratory Tests Test 04/14/19 19:42 04/15/19 05:15 Vancomycin Level Trough 2.3 ug/mL (5.0-12.0) L White Blood Count 11.9 K/UL (4.8-10.8) H Red Blood Count 4.42 M/UL (4.20-5.40) Hemoglobin 14.6 G/DL (12.0-16.0) Hematocrit 43.3 % (37.0-47.0) Mean Corpuscular Volume 98 FL (80-99) Mean Corpuscular Hemoglobin 33.2 PG (27.0-31.0) H Mean Corpuscular Hemoglobin Concent 33.8 G/DL (32.0-36.0) Red Cell Distribution Width 11.5 % (11.6-14.8) L Platelet Count 169 K/UL (150-450) Mean Platelet Volume 8.0 FL (6.5-10.1) Neutrophils (%) (Auto) 78.2 % (45.0-75.0) H Lymphocytes (%) (Auto) 9.2 % (20.0-45.0) L Monocytes (%) (Auto) 11.1 % (1.0-10.0) H Eosinophils (%) (Auto) 0.7 % (0.0-3.0) Basophils (%) (Auto) 0.7 % (0.0-2.0) Sodium Level 141 MMOL/L (136-145) Potassium Level 3.9 MMOL/L (3.5-5.1) Chloride Level 107 MMOL/L (98-107) Carbon Dioxide Level 24 MMOL/L (21-32) Anion Gap 10 mmol/L (5-15) Blood Urea Nitrogen 9 mg/dL (7-18) Creatinine 1.0 MG/DL (0.55-1.30) Estimat Glomerular Filtration Rate > 60 mL/min (>60) Glucose Level 100 MG/DL (74-106) Calcium Level 8.5 MG/DL (8.5-10.1) Total Bilirubin 0.5 MG/DL (0.2-1.0) Aspartate Amino Transf (AST/SGOT) 52 U/L (15-37) H Alanine Aminotransferase (ALT/SGPT) 43 U/L (12-78) Alkaline Phosphatase 61 U/L (46-116) Total Protein 6.7 G/DL (6.4-8.2) Albumin 2.5 G/DL (3.4-5.0) L Globulin 4.2 g/dL Albumin/Globulin Ratio 0.6 (1.0-2.7) L Plan Problems: (1) Infected olecranon bursa (2) UTI (urinary tract infection) (3) Cellulitis of left elbow Assessment & Plan: This is a 68-year-old female with left elbow cellulitis and open wound. Patient's wound is 1 cm in diameter at the apex of the left elbow and when palpated with Q-tip identified to be 3 to 4 cm deep down to palpable bone with Q-tip. Serous drainage identified. Periwound maceration noted. Edema noted. Tender on examination. Patient states developed this many months ago has been worsening since and she is been caring for it. Believes it began from friction injury from laying on her left elbow on the floor. MRI with : Impression: Diffuse edema of the dorsal soft tissues, consistent with stated clinical history of cellulitis Low signal abnormality perpendicular to the skin surface presumably reflects area of gauze packing within an open wound No marrow signal abnormality to suggest acute osteomyelitis No evidence of joint effusion IV antibiotics as per infectious disease. Iodoform packing and gauze dressing daily and as needed saturation no acute surgical intervention planned We will follow with recommendations Thank you for allowing me to participate in patient's care Berny Larkin Apr 15, 2019 12:31
[2019-04-15] MEDS ORDERED: VIBRAMYCIN100 MG ORAL (13:07)
[2019-04-15] MEDS ORDERED: CLEOCIN HCL300 MG PO (13:09)
--- NOTE | 2019-04-15 13:35 | NUR ---
[employer] NOTES INQUIRY FAXED TO [facility]. WILL FOLLOW UP WITH ACCEPTANCE.
--- NOTE | 2019-04-15 14:22 | NUR ---
NURSE NOTES: Patient discharged to home, accompanied by friend. Transported by friend's private vehicle. Belongings reviewed and confirmed by the bedside. Confirmed with Lorraine from [facility] that she received h&p, facesheet and pertinent notes as requested by Dr. Robertson from [facility]. Lorraine stated they will find a nurse and contact the patient directly for scheduling. Patient apprised. Home Health services needed for wound care on left elbow. Patient in stable condition, ambulatory with steady gait.
--- NOTE | 2019-04-15 14:34 | Surgery Progress Note ---
Surgery Progress Note Subjective Symptoms: improved, tolerating diet, passing flatus, pain decreased Objective Last 24 Hour Vital Signs Date Time Temp Pulse Resp B/P (MAP) Pulse Ox O2 Delivery O2 Flow Rate FiO2 04/15/19 12:00 97.9 89 18 126/87 (100) 94 04/15/19 09:00 Room Air 04/15/19 08:00 97.3 90 18 117/74 (88) 04/15/19 06:18 97.9 84 18 138/81 (100) 93 04/14/19 21:00 Room Air 04/14/19 20:00 99.7 83 17 126/64 (84) 93 04/14/19 16:00 98.0 92 20 127/61 (83) 97 I&O Intake and Output 04/14/19 04/15/19 19:00 07:00 Intake Total 710 ml 540.00 ml Balance 710 ml 540.00 ml Intake Oral 600 ml 100 ml IV Total 110 ml 440.00 ml # Voids 2 2 Dressing: saturated Wound: clean Cardiovascular: RSR Respiratory: clear Abdomen: soft, non-tender, present bowel sounds, non-distended Extremities: edema, no tenderness, no cyanosis, other Laboratory Tests Test 04/14/19 19:42 04/15/19 05:15 Vancomycin Level Trough 2.3 ug/mL (5.0-12.0) L White Blood Count 11.9 K/UL (4.8-10.8) H Red Blood Count 4.42 M/UL (4.20-5.40) Hemoglobin 14.6 G/DL (12.0-16.0) Hematocrit 43.3 % (37.0-47.0) Mean Corpuscular Volume 98 FL (80-99) Mean Corpuscular Hemoglobin 33.2 PG (27.0-31.0) H Mean Corpuscular Hemoglobin Concent 33.8 G/DL (32.0-36.0) Red Cell Distribution Width 11.5 % (11.6-14.8) L Platelet Count 169 K/UL (150-450) Mean Platelet Volume 8.0 FL (6.5-10.1) Neutrophils (%) (Auto) 78.2 % (45.0-75.0) H Lymphocytes (%) (Auto) 9.2 % (20.0-45.0) L Monocytes (%) (Auto) 11.1 % (1.0-10.0) H Eosinophils (%) (Auto) 0.7 % (0.0-3.0) Basophils (%) (Auto) 0.7 % (0.0-2.0) Sodium Level 141 MMOL/L (136-145) Potassium Level 3.9 MMOL/L (3.5-5.1) Chloride Level 107 MMOL/L (98-107) Carbon Dioxide Level 24 MMOL/L (21-32) Anion Gap 10 mmol/L (5-15) Blood Urea Nitrogen 9 mg/dL (7-18) Creatinine 1.0 MG/DL (0.55-1.30) Estimat Glomerular Filtration Rate > 60 mL/min (>60) Glucose Level 100 MG/DL (74-106) Calcium Level 8.5 MG/DL (8.5-10.1) Total Bilirubin 0.5 MG/DL (0.2-1.0) Aspartate Amino Transf (AST/SGOT) 52 U/L (15-37) H Alanine Aminotransferase (ALT/SGPT) 43 U/L (12-78) Alkaline Phosphatase 61 U/L (46-116) Total Protein 6.7 G/DL (6.4-8.2) Albumin 2.5 G/DL (3.4-5.0) L Globulin 4.2 g/dL Albumin/Globulin Ratio 0.6 (1.0-2.7) L Plan Problems: (1) Infected olecranon bursa (2) UTI (urinary tract infection) (3) Cellulitis of left elbow Assessment & Plan: This is a 68-year-old female with left elbow cellulitis and open wound. Patient's wound is 1 cm in diameter at the apex of the left elbow and when palpated with Q-tip identified to be 3 to 4 cm deep down to palpable bone with Q-tip. Serous drainage identified. Periwound maceration noted. Edema noted. Tender on examination. Patient states developed this many months ago has been worsening since and she is been caring for it. Believes it began from friction injury from laying on her left elbow on the floor. MRI with : Impression: Diffuse edema of the dorsal soft tissues, consistent with stated clinical history of cellulitis Low signal abnormality perpendicular to the skin surface presumably reflects area of gauze packing within an open wound No marrow signal abnormality to suggest acute osteomyelitis No evidence of joint effusion IV antibiotics as per infectious disease. Iodoform packing and gauze dressing daily and as needed saturation no acute surgical intervention planned okay to d/c with above care instructions outpatient follow up for wound care We will follow with recommendations Thank you for allowing me to participate in patient's care Berny Larkin Apr 15, 2019 14:34
--- NOTE | 2019-04-15 16:21 | Infectious Diseases Prog Note ---
Assessment/Plan Problems: (1) Wound, open, elbow Assessment & Plan: infected with MRSA , and group A streptococcus with no evidence of underlying osteomyelitis on MRI, continue current antibiotics treatment with local wound care , recommend ortho eval for the left elbow joint to rule out septic joint (2) Cellulitis of left elbow Assessment & Plan: already on wide spectrum antibiotics pending cultures (3) UTI (urinary tract infection) Assessment & Plan: already on zosyn pending culture (4) Leukocytosis Assessment & Plan: rule out sepsis , continue wide spectrum antibiotics pending blood culture Subjective Constitutional: Reports: no symptoms HEENT: Reports: no symptoms Respiratory: Reports: no symptoms Breasts: Reports: no symptoms Cardiovascular: Reports: no symptoms Gastrointestinal/Abdominal: Reports: no symptoms Genitourinary: Reports: no symptoms Neurologic: Reports: no symptoms Psychiatric: Reports: no symptoms Skin: Reports: ulcer, other - edema around the elbow Endocrine: Reports: no symptoms Hematologic: Reports: no symptoms Musculoskeletal: Reports: no symptoms Allergies: Coded Allergies: No Known Allergies (Unverified , 04/12/19) Objective Vital Signs Last 24 Hour Vital Signs Date Time Temp Pulse Resp B/P (MAP) Pulse Ox O2 Delivery O2 Flow Rate FiO2 04/15/19 12:00 97.9 89 18 126/87 (100) 94 04/15/19 09:00 Room Air 04/15/19 08:00 97.3 90 18 117/74 (88) 04/15/19 06:18 97.9 84 18 138/81 (100) 93 04/14/19 21:00 Room Air 04/14/19 20:00 99.7 83 17 126/64 (84) 93 Height (Feet): 5 Height (Inches): 6.00 Weight (Pounds): 106 General Appearance: WD/WN, no acute distress HEENT: normocephalic, atraumatic, anicteric, mucous membranes moist, PERRL Respiratory/Chest: chest wall non-tender, lungs clear, normal breath sounds, no respiratory distress, no accessory muscle use Cardiovascular: normal peripheral pulses, normal rate, regular rhythm, no gallop/murmur, no JVD Abdomen: normal bowel sounds, soft, non tender, no organomegaly, non distended , no mass, no scars Extremities: no cyanosis, no clubbing Skin: no rash, no lesions, no ulcers Neurologic/Psychiatric: alert, responsive Lymphatic: no neck adenopathy, no groin adenopathy Musculoskeletal: normal muscle bulk, no effusion Microbiology Date/Time Source Procedure Growth Status 04/12/19 22:30 Blood Blood Culture - Preliminary Resulted 04/12/19 22:15 Blood Blood Culture - Preliminary NO GROWTH AFTER 24 HOURS Resulted 04/12/19 23:05 Other(Specify in comment) Gram Stain - Final Complete 04/12/19 23:05 Wound Culture - Final Staphylococcus Aureus - Mrsa Streptococcus Group A Complete 04/12/19 23:20 Urine,Clean Catch Urine Culture - Final Mixed Gram Positive Organism Complete Laboratory Tests Test 04/14/19 19:42 04/15/19 05:15 Vancomycin Level Trough 2.3 ug/mL (5.0-12.0) L White Blood Count 11.9 K/UL (4.8-10.8) H Red Blood Count 4.42 M/UL (4.20-5.40) Hemoglobin 14.6 G/DL (12.0-16.0) Hematocrit 43.3 % (37.0-47.0) Mean Corpuscular Volume 98 FL (80-99) Mean Corpuscular Hemoglobin 33.2 PG (27.0-31.0) H Mean Corpuscular Hemoglobin Concent 33.8 G/DL (32.0-36.0) Red Cell Distribution Width 11.5 % (11.6-14.8) L Platelet Count 169 K/UL (150-450) Mean Platelet Volume 8.0 FL (6.5-10.1) Neutrophils (%) (Auto) 78.2 % (45.0-75.0) H Lymphocytes (%) (Auto) 9.2 % (20.0-45.0) L Monocytes (%) (Auto) 11.1 % (1.0-10.0) H Eosinophils (%) (Auto) 0.7 % (0.0-3.0) Basophils (%) (Auto) 0.7 % (0.0-2.0) Sodium Level 141 MMOL/L (136-145) Potassium Level 3.9 MMOL/L (3.5-5.1) Chloride Level 107 MMOL/L (98-107) Carbon Dioxide Level 24 MMOL/L (21-32) Anion Gap 10 mmol/L (5-15) Blood Urea Nitrogen 9 mg/dL (7-18) Creatinine 1.0 MG/DL (0.55-1.30) Estimat Glomerular Filtration Rate > 60 mL/min (>60) Glucose Level 100 MG/DL (74-106) Calcium Level 8.5 MG/DL (8.5-10.1) Total Bilirubin 0.5 MG/DL (0.2-1.0) Aspartate Amino Transf (AST/SGOT) 52 U/L (15-37) H Alanine Aminotransferase (ALT/SGPT) 43 U/L (12-78) Alkaline Phosphatase 61 U/L (46-116) Total Protein 6.7 G/DL (6.4-8.2) Albumin 2.5 G/DL (3.4-5.0) L Globulin 4.2 g/dL Albumin/Globulin Ratio 0.6 (1.0-2.7) L Sharath Figueroa M.D. Apr 15, 2019 16:21
--- NOTE | 2019-04-16 11:22 | Discharge Summary ---
Discharge Summary Discharge Summary _ DATE OF ADMISSION: 04/12/2019 DATE OF DISCHARGE: 04/15/2019 DISCHARGED BY: Dr. Pedersen REASON FOR ADMISSION: 68 years old female with no significant past medical history, was brought by her son due to left elbow infection and altered mental status for one day. Physical exam revealed abrasion to the left elbow. Patient apparently likes to sit on the floor with her elbow on the rug. However this morning the son noted that the elbow was swollen and was warm to touch. Pain was reproducible with palpation. No injury to left elbow reported. Patient appeared to be more confused. On evaluation vital signs revealed mild tachycardia and low blood pressure 85/ 56. Laboratory work-up revealed leukocytosis WBC 17.8, stable hemoglobin and hematocrit. Sodium 132. BUN 20, creatinine 1.4. Urinalysis revealed evidence of probable UTI. X-ray of the left elbow reveal evidence of soft tissue injury, no acute bony trauma. In emergency department patient started on empiric antibiotics and admitted for further management. CONSULTANTS: ID specialist Dr. Figueroa key operator/oncologist Dr. Wagner surgery Dr. Vargas HOSPITAL COURSE: Patient admitted to medical surgical floor. Patient started on antibiotic as per ID specialist recommendation. Pain management was addressed as needed. Renal parameters and electrolytes were closely monitored. Electrolytes corrected as needed, and nephrotoxins avoided. Sodium from 132 up to 141. Creatinine from 1.4 down to 1.0. Acute renal failure resolved DVT/ GI prophylaxis provided. Urine culture revealed mixed gram-positive organisms. Wound culture revealed MRSA and Strep Group A. Blood culture revealed MRSA . Antibiotic provided as per ID specialist recommendation. MRI of left elbow revealed no evidence of joint effusion. No marrow signal abnormality to suggest acute osteomyelitis. Antibiotics changed to oral upon discharge to complete the course as per ID specialist recommendation. Surgeon followed. Wound care for left elbow infection provided as per surgeon recommendation. No acute surgical intervention was necessary. Continue wound care upon discharge. Leukocytosis trended down. Patient remained afebrile and hemodynamically stable. Mental status back to baseline. Patient clinically stabilized and was ready for discharge home. Home health services were arranged for wound care. FINAL DIAGNOSES: Leukocytosis Possible sepsis with MRSA bacteremia Cellulitis of left elbow Open wound left elbow Infected olecranon bursa Possible UTI Hyponatremia-resolved Acute renal failure -resolved DISCHARGE MEDICATIONS: See Medication Reconciliation list. DISCHARGE INSTRUCTIONS: Patient was discharged home with home health services. Follow up with primary care provider in one week. I have been assigned to dictate discharge summary for this account. I was not involved in the patient's management. Guerita Ruelas NP Apr 16, 2019 11:22
== END 2019-04-15 14:23 | disposition home health service (06) | DRG 872 ==
LOC: EMR 22:27 → 3E 23:55 → EDBEDREQ 04-13 00:20 → 4E 04-15 09:55
PROC: 0H9EXZZ Drainage of Left Lower Arm Skin, External Approach (ICD-10-PCS; principal; 2019-04-12)
DX: A41.02 Sepsis due to Methicillin resistant Staphylococcus aureus (principal); L03.114 Cellulitis of left upper limb; L02.414 Cutaneous abscess of left upper limb; E87.1 Hypo-osmolality and hyponatremia; N17.9 Acute kidney failure, unspecified; N39.0 Urinary tract infection, site not specified; R65.20 Severe sepsis without septic shock; M71.122 Other infective bursitis, left elbow; S50.312A Abrasion of left elbow, initial encounter; X58.XXXA Exposure to other specified factors, initial encounter; S51.002A Unspecified open wound of left elbow, initial encounter; D69.6 Thrombocytopenia, unspecified
CPT/HCPCS: 36415; 80053; 80061; 80202; 81003; 83036; 83605; 84443; 84484; 85007; 85025; 86703; 86705; 86709; 86803; 87040; 87070; 87086; 87181; 87205; 87340; 96361; 96365; 96368; 99285

== ENCOUNTER 2019-05-08 23:25 | Inpatient (IN) | payer MEDICARE ==
[~2019-05-08] VITALS: Ht 162.6 cm; Wt 44.5 kg
[~2019-05-08 23:25] MED LIST: CLEOCIN HCL300 MG PO; NKM; VIBRAMYCIN100 MG ORAL
[2019-05-08 23:37] VITALS: BP 108/65
--- NOTE | 2019-05-08 23:37 | NUR ---
ED Nurse Note: pt walked in to ED accompanied by family members. per pt brother, pt has noted with increased confusion since sherleylier today. pt is alert x2. able to make needs known. VSS
--- NOTE | 2019-05-09 00:12 | NUR ---
ED Nurse Note: urine and blood sample sent down to lab
--- NOTE | 2019-05-09 00:13 | Emergency Room Report ---
History of Present Illness General Chief Complaint: Altered Mental Status Source: Patient Present Illness HPI Disclaimer: Please note that this report is being documented using [employer] technology. This can lead to erroneous entry secondary to incorrect interpretation by the dictating instrument. HPI: 68-year-old female with no reported medical history presents for evaluation of altered mental status. She is admitted to the hospital several weeks ago for a left elbow cellulitis and altered mental status. She also had an acute kidney injury at that time which resolved. Her younger brother is here with her today. He states that she was in her usual state of health when she awoke this morning however throughout the day she became progressively more confused. He denies her reporting any complaints of fever, chest pain, shortness of breath, cough, vomiting, diarrhea, dysuria or recent rash. He states that her answers to his questions became progressively more incoherent, she was altered and did not remember what she was doing. States this is a very similar presentation to her hospital admission with a left elbow cellulitis a few weeks ago. She finished her whole course of antibiotics and visiting nurses said the wound has been healing well. Denies any history of fall or head trauma. The patient herself cannot recall why she was brought to the hospital by her younger brother. She denies any complaints at this time of headache, visual changes, nausea, vomiting, abdominal pain, chest pain, shortness of breath or any other complaints. She is oriented to self but not time, difficulty with following commands. PMH: Left elbow cellulitis PSH: Denies Allergies: None listed Social Hx: Denies Allergies: Coded Allergies: No Known Allergies (Unverified , 04/12/19) Nursing Documentation-PMH Past Medical History: No Stated History Hx Cardiac Problems: No Hx Cancer: No Hx Gastrointestinal Problems: No Hx Neurological Problems: No Review of Systems All Other Systems: limited - Family, patient denies but somewhat unreliable Physical Exam Vital Signs Date Time Temp Pulse Resp B/P (MAP) Pulse Ox O2 Delivery O2 Flow Rate FiO2 05/08/19 23:28 98.8 92 15 111/65 (80) 94 Room Air 05/08/19 23:37 98 General: Awake, disheveled appearing, confused but pleasant HEENT: NC/AT. EOMI. PERRLA. Anicteric sclera. Dry mucous membranes Neck: Supple, trachea midline Chest Wall: No tenderness, no deformity Cardiovascular: RRR. S1 and S2 normal. No murmur appreciated Resp: Normal work of breathing. No cough, wheezing or crackles appreciated Abdomen: Abdomen is soft, nondistended. Nontender Skin: There is a puncture wound over the left olecranon without purulent drainage. Cannot express any fluid. No surrounding erythema or edema. MSK: Normal tone and bulk. Moving all extremities. No obvious deformity. Range of motion at the left elbow is preserved. Neuro: Awake, oriented x2. Aware she is in a hospital. Unaware of the time of year, month. Unaware of why she is at the hospital. GCS 15. Moving all extremities. Difficulty with following two-step commands. Cannot recall 3 items. Back/Spine: No midline tenderness in the cervical spine. Medical Decision Making Diagnostic Impression: Primary Impression: Cellulitis of left elbow Additional Impression: Encephalitis ER Course 68-year-old female presents for evaluation of mental status private branch exchange service adviser the past 12 hours. Brother who brings her to the emergency department he states is very similar presentation to her prior admission when she was treated for left elbow cellulitis, ÓSCAR and possible UTI. We will start broad metabolic and infectious work-up as well as tox screens. There is no evidence of trauma in the patient's brother denies any fall or head injury. Will not order CT at this time but can advance work-up as needed. Patient does appear more encephalopathic rather than traumatic. We will also obtain x-ray of the left elbow as well as inflammatory markers ESR CRP. Patient will likely require admission. Laboratory Tests Test 05/08/19 00:00 05/09/19 00:18 White Blood Count 19.8 K/UL (4.8-10.8) H Red Blood Count 4.26 M/UL (4.20-5.40) Hemoglobin 14.5 G/DL (12.0-16.0) Hematocrit 40.8 % (37.0-47.0) Mean Corpuscular Volume 96 FL (80-99) Mean Corpuscular Hemoglobin 33.9 PG (27.0-31.0) H Mean Corpuscular Hemoglobin Concent 35.4 G/DL (32.0-36.0) Red Cell Distribution Width 10.8 % (11.6-14.8) L Platelet Count 179 K/UL (150-450) Mean Platelet Volume 6.3 FL (6.5-10.1) L Neutrophils (%) (Auto) % (45.0-75.0) Lymphocytes (%) (Auto) % (20.0-45.0) Monocytes (%) (Auto) % (1.0-10.0) Eosinophils (%) (Auto) % (0.0-3.0) Basophils (%) (Auto) % (0.0-2.0) Neutrophils % (Manual) Pending Lymphocytes % (Manual) Pending Platelet Estimate Pending Platelet Morphology Pending Urine Color Pale yellow Urine Appearance Clear Urine pH 8 (4.5-8.0) Urine Specific [place] 1.010 (1.005-1.035) Urine Protein Negative (NEGATIVE) Urine Glucose (UA) Negative (NEGATIVE) Urine Ketones Negative (NEGATIVE) Urine Blood 3+ (NEGATIVE) H Urine Nitrite Negative (NEGATIVE) Urine Bilirubin Negative (NEGATIVE) Urine Urobilinogen Normal MG/DL (0.0-1.0) Urine Leukocyte Esterase 1+ (NEGATIVE) H Urine RBC 5-10 /HPF (0 - 2) H Urine WBC 0-2 /HPF (0 - 2) Urine Squamous Epithelial Cells Few /LPF (NONE/OCC) Urine Transitional Epithelial Cells Occasional /LPF (NONE) H Urine Bacteria Few /HPF (NONE) Sodium Level 128 MMOL/L (136-145) L Potassium Level 4.1 MMOL/L (3.5-5.1) Chloride Level 95 MMOL/L (98-107) L Carbon Dioxide Level 23 MMOL/L (21-32) Anion Gap 10 mmol/L (5-15) Blood Urea Nitrogen 15 mg/dL (7-18) Creatinine 1.2 MG/DL (0.55-1.30) Estimate Glomerular Filtration Rate 54.2 mL/min (>60) Glucose Level 111 MG/DL (74-106) H Calcium Level 9.3 MG/DL (8.5-10.1) Total Bilirubin 0.3 MG/DL (0.2-1.0) Aspartate Amino Transferase (AST) 21 U/L (15-37) Alanine Aminotransferase (ALT) 18 U/L (12-78) Alkaline Phosphatase 66 U/L (46-116) Ammonia < 10 umol/L (11-32) L Total Creatine Kinase 169 U/L (26-308) Creatine Kinase MB 0.5 NG/ML (0.0-3.6) Creatine Kinase MB Relative Index 0.2 Troponin I 0.008 ng/mL (0.000-0.056) Total Protein 7.7 G/DL (6.4-8.2) Albumin 3.1 G/DL (3.4-5.0) L Globulin 4.6 g/dL Albumin/Globulin Ratio 0.7 (1.0-2.7) L Thyroid Stimulating Hormone (TSH) 0.479 uiU/mL (0.358-3.740) Salicylates Level 4.4 ug/mL (2.8-20) Urine Opiates Screen Negative (NEGATIVE) Acetaminophen Level < 2 MCG/ML (10-30) L Urine Barbiturates Screen Negative (NEGATIVE) Phencyclidine (PCP) Screen Negative (NEGATIVE) Urine Amphetamines Screen Negative (NEGATIVE) Urine Benzodiazepines Screen Negative (NEGATIVE) Urine Cocaine Screen Negative (NEGATIVE) Urine Marijuana (THC) Screen Negative (NEGATIVE) Serum Alcohol < 3 mg/dL Erythrocyte Sedimentation Rate 85 MM/HR (0-30) H C-Reactive Protein, Quantitative 11.4 mg/dL (0.00-0.90) H EKG Diagnostic Results EKG Time: 23:58 Rate: normal Rhythm: NSR ST Segments: no acute changes Other Impression Sinus rhythm, normal axis, normal intervals, no ST segment changes. Rhythm Strip Diag. Results Rhythm Strip Time: 23:58 EP Interpretation: yes Rate: 90s Rhythm: NSR, no PVC's, no ectopy Chest X-Ray Diagnostic Results Chest X-Ray Diagnostic Results : Chest X-Ray Ordered: Yes # of Views/Limited/Complete: 1 View Indication: Other - AMS Interpretation: no consolidation, no effusion, no pneumothorax, no acute cardiopulmonary disease Impression: No acute disease Electronically Signed by: Electronically signed by Dr. Abhi Mayes Other X-Ray Diagnostic Results Other X-Ray Diagnostic Results : X-Ray ordered: Left elbow # of Views/Limited Vs Complete: 2 View Indication: Pain Interpretation: no dislocation, no fractures Impression: Other - No obvious evidence of fracture or osteomyelitis Electronically Signed by: Electronically signed by Dr. Abhi Mayes Reevaluation Time: 01:49 Last Vital Signs Date Time Temp Pulse Resp B/P (MAP) Pulse Ox O2 Delivery O2 Flow Rate FiO2 10/5/19 23:37 98.8 91 15 108/65 97 Room Air 05/08/19 23:37 98 Reevaluation Impression Labs show an elevated white count as well as positive inflammatory markers. X- ray of the left elbow does not show new fracture and is noted to have some improvement in soft tissue swelling compared to prior study on the official radiology interpretation. There is no joint effusion and they also notes an unchanged irregularity of the choroid process. May be a cellulitis of the overlying skin the patient was treated empirically with vancomycin and ceftriaxone. Discussed with the patient's PMD who will also be the admitting physician. We will obtain a CT scan of the head prior to transfer to the floor. Barring no acute findings the patient will be admitted for further work- up of encephalopathy and leukocytosis. Disposition: ADMITTED INPATIENT Condition: Serious Referrals: Gary Pedersen MD (PCP) Abhi Mayes MD May 09, 2019 00:13
[2019-05-09 00:22] LABS: APPEARANCE,URINE CLEAR; BILIRUBIN, URINE NEGATIVE (NEGATIVE); COLOR,URINE PALE YELLOW; GLUCOSE, URINE (UA) NEGATIVE (NEGATIVE); HEMATOCRIT 40.8 % (37.0-47.0); HEMOGLOBIN 14.5 G/DL (12.0-16.0); KETONES,URINE NEGATIVE (NEGATIVE); LEUKOCYTE ESTERASE ,URINE 1+ (NEGATIVE); MEAN CORPUSCULAR VOLUME 96 FL (80-99); NITRITE,URINE NEGATIVE (NEGATIVE); PH,URINE 8 (4.5-8.0); PLATELET COUNT 179 K/UL (150-450); PROTEIN,URINE NEGATIVE (NEGATIVE); RED BLOOD COUNT 4.26 M/UL (4.20-5.40); RED CELL DISTRIBUTION WIDTH 10.8 % (11.6-14.8); UROBILINOGEN,URINE NORMAL MG/DL (0.0-1.0); WHITE BLOOD COUNT 19.8 K/UL (4.8-10.8)
[2019-05-09 00:42] LABS: AMMONIA < 10 umol/L (11-32); ANION GAP 10 mmol/L (5-15); BLOOD UREA NITROGEN 15 mg/dL (7-18); CALCIUM 9.3 MG/DL (8.5-10.1); CARBON DIOXIDE 23 MMOL/L (21-32); CHLORIDE 95 MMOL/L (98-107); CREATININE 1.2 MG/DL (0.55-1.30); POTASSIUM 4.1 MMOL/L (3.5-5.1); SODIUM 128 MMOL/L (136-145)
--- NOTE | 2019-05-09 00:48 | NUR ---
ED Nurse Note: x ray at bedside
[2019-05-09 00:56] LABS: ALANINE AMINOTRANSFERASE 18 U/L (12-78); ALBUMIN 3.1 G/DL (3.4-5.0); ALBUMIN/GLOBULIN RATIO 0.7 (1.0-2.7); ALKALINE PHOSPHATASE 66 U/L (46-116); ASPARTATE AMINO TRANSFERASE 21 U/L (15-37); BILIRUBIN,TOTAL 0.3 MG/DL (0.2-1.0); CKMB 0.5 NG/ML (0.0-3.6); CREATINE KINASE 169 U/L (26-308)
--- NOTE | 2019-05-09 01:10 | Diagnostic Imaging Report ---
EXAM: XR Left Elbow Complete, 3 or More Views CLINICAL HISTORY: INJ TECHNIQUE: Frontal, lateral and oblique views of the left elbow. COMPARISON: 04 12 2019 FINDINGS: Bones joints: No joint effusion. Unchanged irregularity of the choroid process could represent remote fracture or degenerative change. No dislocation. Soft tissues: Soft tissue thickening over the olecranon less pronounced than on comparison study, this could represent improving olecranon bursitis or reinjury or recurrent olecranon bursitis. Correlate clinically. IMPRESSION: 1. Soft tissue thickening over the olecranon less pronounced than on comparison study, this could represent improving olecranon bursitis, reinjury, or recurrent olecranon bursitis. Correlate clinically. 2. No joint effusion. 3. Unchanged irregularity of the choroid process could represent remote fracture or degenerative change.
--- NOTE | 2019-05-09 01:52 | NUR ---
ED Nurse Note: performing cxr at bed side
[2019-05-09] MEDS ORDERED: cefTRIAXone 1 GM in NS 55 ML IVPB ONE (02:00)
[2019-05-09] MEDS ORDERED: Vancomycin 1 GM in NS 275 ML IVPB ONE (02:00)
--- NOTE | 2019-05-09 02:41 | NUR ---
ED Nurse Note: Report given to GEOGRE Vidal
--- NOTE | 2019-05-09 02:43 | NUR ---
ED Nurse Note: pt was brought up to room 409 via gurney accompanied by fire management technician in stable condition. IV site is to left IJ and is intact. Vancomycin and NS is still running. Belonging list signed.
--- NOTE | 2019-05-09 02:46 | NUR ---
NURSE NOTES: Patient came from ER via gurney. A&Ox1 with confusion. IV site patent and intact. Open wound noted on left elbow. Brother at bedside. No belonging noted. Brother took patient's belongings. Bed in lowest position. Call light within reach. Will continue to monitor.
--- NOTE | 2019-05-09 02:49 | Diagnostic Imaging Report ---
EXAM: XR Chest, 1 View CLINICAL HISTORY: COUGH TECHNIQUE: Frontal view of the chest. COMPARISON: No relevant prior studies available. FINDINGS: Lungs: Mild interstitial prominence is suggestive of chronic lung disease. No focal consolidation. Pleural space: Unremarkable. No pneumothorax. Heart: Unremarkable. No cardiomegaly. Mediastinum: Unremarkable. Bones joints: Mild degenerative changes of both shoulder joints. Vasculature: Calcification of the aortic arch. IMPRESSION: No acute findings.
[2019-05-09 03:00] VITALS: BP 118/68
--- NOTE | 2019-05-09 03:10 | NUR ---
NURSE NOTES: Patient off the unit for CT head.
--- NOTE | 2019-05-09 03:25 | NUR ---
NURSE NOTES: Patient came back to the unit.
--- NOTE | 2019-05-09 03:50 | Diagnostic Imaging Report ---
EXAM: CT Head Without Intravenous Contrast CLINICAL HISTORY: AMS TECHNIQUE: Axial computed tomography images of the head brain without intravenous contrast. CTDI is 62.7 mGy and DLP is 1432.7 mGy-cm. One or more of the following dose reduction techniques were used: automated exposure control, adjustment of the mA and or kV according to patient size, use of iterative reconstruction technique. COMPARISON: No relevant prior studies available. FINDINGS: Brain: Areas of mild decreased density suspected in the white matter which are nonspecific but are likely related to small vessel ischemic changes. Cerebral atrophy. No hemorrhage. Ventricles: Unremarkable. Bones joints: Unremarkable. No acute fracture. Soft tissues: Unremarkable. Sinuses: Areas of mild mucosal thickening in the paranasal sinuses. Mastoid air cells: Unremarkable as visualized. No mastoid effusion. IMPRESSION: 1. Areas of mild decreased density suspected in the white matter which are nonspecific but are likely related to small vessel ischemic changes. 2. Cerebral atrophy.
--- NOTE | 2019-05-09 03:57 | NUR ---
NURSE NOTES: Obtained new admit order from Dr. Oswald.
[2019-05-09] MEDS: Piperacillin/Tazobactam 3.375 GM in NS 110 ML IVPB SCH ×3 (05:48→21:40)
--- NOTE | 2019-05-09 07:00 | NUR ---
NURSE NOTES: Patient very confused. Patient kept trying to get out of bed. Patient doesn't recognize IV line is connected. Patient wandering [address] way. Obtained restraint order from Dr. Oswald.
--- NOTE | 2019-05-09 07:20 | NUR ---
NURSE NOTES: Received report from GEORGE Lopez. Patient A&Ox1. On room air, no signs of distress or labored breathing. IV intact, patent, and infusing IV antibiotics. Bed in lowest position with call light in reach. Will continue with plan of care.
--- NOTE | 2019-05-09 07:29 | NUR ---
HAND-OFF: Report given to Peggy VAZQUEZ.
[2019-05-09 08:00] VITALS: BP 107/68
--- NOTE | 2019-05-09 08:30 | NUR ---
NURSE NOTES: Bilateral soft wrist restraints applied to patient per MD order. Family aware. Patient stable. No swelling. Sensation and peripheral pulses present. Will continue to monitor per protocol.
[2019-05-09] MEDS: Heparin 5000 units/ml inj SUBQ SCH ×2 (08:55→21:38)
[2019-05-09] MEDS ORDERED: Vancomycin 1 GM in D5W 275 ML IVPB SCH (09:00)
[2019-05-09 09:22] LABS: HEMATOCRIT 39.7 % (37.0-47.0); HEMOGLOBIN 13.8 G/DL (12.0-16.0); MEAN CORPUSCULAR VOLUME 96 FL (80-99); PLATELET COUNT 189 K/UL (150-450); RED BLOOD COUNT 4.12 M/UL (4.20-5.40); RED CELL DISTRIBUTION WIDTH 11.5 % (11.6-14.8); WHITE BLOOD COUNT 16.1 K/UL (4.8-10.8)
[2019-05-09 09:48] LABS: ALANINE AMINOTRANSFERASE 19 U/L (12-78); ALBUMIN 2.7 G/DL (3.4-5.0); ALKALINE PHOSPHATASE 61 U/L (46-116); ANION GAP 8 mmol/L (5-15); ASPARTATE AMINO TRANSFERASE 22 U/L (15-37); BILIRUBIN,DIRECT < 0.1 MG/DL (0.0-0.3); BILIRUBIN,TOTAL 0.3 MG/DL (0.2-1.0); BLOOD UREA NITROGEN 12 mg/dL (7-18); CALCIUM 8.7 MG/DL (8.5-10.1); CARBON DIOXIDE 25 MMOL/L (21-32); CHLORIDE 99 MMOL/L (98-107); CREATININE 1.1 MG/DL (0.55-1.30); POTASSIUM 3.8 MMOL/L (3.5-5.1); SODIUM 132 MMOL/L (136-145)
--- NOTE | 2019-05-09 10:15 | NUR ---
CASE MANAGEMENT: INITIAL REVIEW 68 YO F PRESENTED TO ED FROM HOME CC: AMS PMHx: DENIES SI:AMS. T 98.8 HR 92 RR 15 B/P 111/65 SATS 94% ON RA WBC 19.8 NA 128 CL 95 GLU 111 IS: VANCO IV X1 CEFTRIAXONE IV X1 NS BOLUS X1 PATIENT ADMITTED TO MED/SURG 05/09/2019 @ 0200 DCP: PATIENT TO BE DISCHARGED TO HOME ONCE MEDICALLY CLEARED.
[2019-05-09 12:00] VITALS: BP 121/60
[2019-05-09 16:00] VITALS: BP 139/81
--- NOTE | 2019-05-09 18:43 | NUR ---
NURSE NOTES: Called Dr. Betancur per Dr. Oswald's request for ID MD consult. Left message via [employer].
--- NOTE | 2019-05-09 19:25 | NUR ---
HAND-OFF: Report given to GEORGE Dominguez.
--- NOTE | 2019-05-09 19:30 | NUR ---
NURSE NOTES: Patient awake in bed, no complaints of pain, on bilateral soft wrist restraints. Per patient she couldn't remember what happened last night. Patient was able to answer questions. Bed in lowest, lock engaged and alarm on. Will continue to monitor.
[2019-05-09 20:00] VITALS: BP 105/60
--- NOTE | 2019-05-09 21:30 | NUR ---
NURSE NOTES: Patient wanted to be off restraints for a while. She wanted to make a phone call. She was able to take 9pm meds. Will continue to monitor.
--- NOTE | 2019-05-09 22:30 | NUR ---
NURSE NOTES: Patient didn't want to be on restraints. More alert this time. Able to follow commands.
[2019-05-10] VITALS: BP 128/69
--- NOTE | 2019-05-10 | NUR ---
NURSE NOTES: Discontinued restraints per protocol. Charge nurse made aware.
[2019-05-10] MEDS: Vancomycin 750mg/D5W 275ml IVPB SCH ×2 (01:47)
[2019-05-10 04:00] VITALS: BP 101/50
[2019-05-10] MEDS: Piperacillin/Tazobactam 3.375 GM in NS 110 ML IVPB SCH ×2 (05:04→13:47)
[2019-05-10 06:18] LABS: APPEARANCE,URINE CLEAR; BILIRUBIN, URINE NEGATIVE (NEGATIVE); COLOR,URINE PALE YELLOW; GLUCOSE, URINE (UA) NEGATIVE (NEGATIVE); KETONES,URINE NEGATIVE (NEGATIVE); LEUKOCYTE ESTERASE ,URINE NEGATIVE (NEGATIVE); NITRITE,URINE NEGATIVE (NEGATIVE); PH,URINE 6 (4.5-8.0); PROTEIN,URINE 2+ (NEGATIVE); UROBILINOGEN,URINE NORMAL MG/DL (0.0-1.0)
[2019-05-10 07:17] LABS: BASOPHILS % (AUTO) 0.6 % (0.0-2.0); EOSINOPHILS % (AUTO) 0.9 % (0.0-3.0); HEMATOCRIT 40.8 % (37.0-47.0); HEMOGLOBIN 14.1 G/DL (12.0-16.0); LYMPHOCYTES % (AUTO) 10.1 % (20.0-45.0); MEAN CORPUSCULAR VOLUME 96 FL (80-99); MONOCYTES % (AUTO) 8.7 % (1.0-10.0); NEUTROPHILS % (AUTO) 79.7 % (45.0-75.0); PLATELET COUNT 192 K/UL (150-450); RED BLOOD COUNT 4.27 M/UL (4.20-5.40); RED CELL DISTRIBUTION WIDTH 11.5 % (11.6-14.8); WHITE BLOOD COUNT 13.2 K/UL (4.8-10.8)
--- NOTE | 2019-05-10 07:20 | NUR ---
HAND-OFF: Report given to GEORGE Goldberg.
[2019-05-10 07:25] LABS: ANION GAP 9 mmol/L (5-15); BLOOD UREA NITROGEN 9 mg/dL (7-18); CALCIUM 8.9 MG/DL (8.5-10.1); CARBON DIOXIDE 24 MMOL/L (21-32); CHLORIDE 103 MMOL/L (98-107); POTASSIUM 5.1 MMOL/L (3.5-5.1); SODIUM 136 MMOL/L (136-145)
[2019-05-10 08:00] VITALS: BP 116/66
--- NOTE | 2019-05-10 08:07 | NUR ---
NURSE NOTES: Patient received in stable condition, resting, awake in bed. Denies SOB or pain at this time. Breathing unlabored on room air. Currently NPO for upcoming ultrasound procedure. IV site on left hand patent and intact. Call light placed within reach, will continue to monitor.
[2019-05-10] MEDS: Heparin 5000 units/ml inj SUBQ SCH ×2 (08:52→20:15)
--- NOTE | 2019-05-10 10:30 | History and Physical Report ---
DATE OF ADMISSION: 05/09/2019 This is one of several admissions to [facility] of this 68-year-old lady because of fever, tachycardia, and delirium. HISTORY OF PRESENT ILLNESS: The patient resides at home and had been in stable condition until one day prior to the present admission when she developed fever, tachycardia, and altered mental status according to the family. On , symptoms were mild and no medical consultation was sought. The following day, which is the day of admission, she was brought by her mother to the emergency room because of bizarre behavior and is disoriented to time and place. PAST MEDICAL HISTORY: She was admitted to this hospital and because of cerebral infection several weeks ago, the patient was treated with antibiotics and was considered to be resolved. Medically, she denies history of any surgical antecedent. ALLERGIES: No known drug allergies. MEDICATIONS: Apparently, the patient does not take any medication prior to her admission. FAMILY HISTORY: Noncontributory. SOCIAL HISTORY: She is single. She is born in [place]. She has been retired now for 10 years. HABITS: The patient did not smoke, drink, or use illicit drugs. REVIEW OF SYSTEMS: The patient is unable to give any information regarding her state of health. PHYSICAL EXAMINATION: VITAL SIGNS: Blood pressure is 121/60, pulse is 100, respirations are 20, and temperature is 101.8. HEENT: Eyes were normal. Pupils were round, equal, and reacting to light. Sclerae were white. Conjunctivae were pink. Extraocular movements were normal. Temporal arteries were palpable bilaterally. There was no bilateral temporal wasting. Visual penaloza to confrontation were normal. Neglect sign was negative. ENT, mucous membranes were not dehydrated. Auditory canals were clear and tympanic membranes could not be visualized. Nasal cavity was not congested. Nasal septum was intact. Soft palate was free of ulcerations. Pharynx was clear from exudate or tonsillar hypertrophy. Uvula shant to phonation. Tongue was moist, midline, and normally papillated. NECK: Supple. There was no goiter. No mass. No lymphadenopathy. There was no JVD. No bruits. Carotid upstroke was 2+. LUNGS: Clear. HEART: PMI was in the fourth left intercostal space in midclavicular line. There was normal S1 and normal S2. There was tachycardia at rest. Sinus tachycardia on monitor. ABDOMEN: Soft and nontender with normal bowel sounds. EXTREMITIES: Warm without cyanosis, clubbing, or edema. NEUROLOGICAL: Reflexes in biceps, triceps, and brachioradialis were present. Patellar retinaculum were present. Plantars were in flexion. Cranial nerves II through XII were symmetric and equal. Cerebellar function, gait, [id number], rapid alternating movements, and Romberg sign could not be tested because the patient has been confused. There was no tremor. No nystagmus. No extrapyramidal rigidity. Sensory exam to pinprick, cotton touch, position are grossly normal. Motor strength was 5/5 against resistance in upper and lower extremities in proximal and distal muscles and corresponds to age. LABORATORY AND DIAGNOSTIC DATA: Her hemoglobin was 14.5 with hematocrit 40.8 with MCV of 96, WBC of 19.8, and platelets are 179,000. Her BUN and creatinine were 15 and 1.2 respectively. Her sodium is 128, potassium 4.1, chloride 95, and CO2 is 23. SGOT, SGPT, and alkaline phosphatase were normal. Ammonia was not detected. Troponin was 0.08. CRP was 11.4. Albumin was 2.7. Total protein was 7.1. Lactic acid was 1. Urinalysis shows 3+ blood, 1+ leukocyte esterase, 5 to 10 rbc's, and wbc. CT scan of the brain shows cerebral atrophy and has cranial secondary to ischemic small vessel. She . No cardiomegaly. . No joint effusion. degenerative infarction. The patient has no . IMPRESSION: The patient has delirium, fever, and leukocytosis, the elbow infection and minimally swollen, warm, and tender. PLAN: The patient will remain on vancomycin 1 g IV piggyback q.12 h. and Zosyn 3.375 g IV piggyback q.6 h. Repeat laboratory tests will be done in a.m. If necessary, orthopedic cassandra consultant . Henok Oswald M.D. DR: JESICA JOB#: [id number] CC:
--- NOTE | 2019-05-10 11:26 | Diagnostic Imaging Report ---
Indication: Pelvic pain, leukocytosis Technique: Transabdominal images only. Endovaginal imaging performed, per patient request Comparison: none Findings: Exam is limited due to lack of endovaginal images. Uterus is retroverted, measures 6.2 cm length by 2.3 cm AP. It contains calcifications. A 7 mm cyst is seen in the lower uterine segment. Anechoic structure is seen posterior to the uterus. No free cul-de-sac fluid. The ovaries cannot be visualized. No gross adnexal mass Impression: Very limited exam, as described Anechoic structure posterior the uterus, possibly but not definitively representing the rectum. Consider endovaginal imaging when patient able to tolerate 7 mm cyst within the uterus. Uterine calcifications, may reflect old degenerated fibroids Nonvisualized ovaries
--- NOTE | 2019-05-10 11:57 | Consultation ---
History of Present Illness General Date patient seen: May 10, 2019 Chief Complaint: Altered Mental Status Present Illness HPI 68 y/o F with hx of recent L elbow cellulitis presented to ED on 05/09 with altered mental status. Admitted here on early April 2019 for left elbow cellulitis 2ry to MRSA and Group A Strep. MRI showed no OM. No fever, CP, SOB, cough, v/d, dysuria, rash. Allergies: Coded Allergies: No Known Allergies (Unverified , 04/12/19) Medication History Scheduled Clindamycin Hcl (Cleocin Hcl), 300 MG PO Q8HR, (Reported) Doxycycline Hyclate* (Vibramycin*), 100 MG ORAL EVERY 12 HOURS, (Reported) No Known Medications* (NKM - No Known Medications*), 0 ., (Reported) Patient History Healthcare decision maker Grey Mejía [phone] Resuscitation status Full Code Advanced Directive on File Patient History Narrative Pmhx: as above Shx: She is single. She is born in [place]. She has been retired now for 10 years. Fhx non contributory Physical Exam Physical Exam Narrative HEENT: Eyes were normal. Pupils were round, equal, and reacting to light. Sclerae were white. ENT, mucous membranes were not dehydrated. NECK: Supple. There was no goiter. No mass. No lymphadenopathy. There was no JVD. LUNGS: Clear. HEART: PMI was in the fourth left intercostal space in midclavicular line. There was normal S1 and normal S2. There was tachycardia at rest. Sinus tachycardia on monitor. ABDOMEN: Soft and nontender with normal bowel sounds. EXTREMITIES: Warm without cyanosis, clubbing, or edema. Last 24 Hour Vital Signs Date Time Temp Pulse Resp B/P (MAP) Pulse Ox O2 Delivery O2 Flow Rate FiO2 05/10/19 09:00 Room Air 05/10/19 08:00 98.2 66 18 116/66 (83) 95 05/10/19 04:00 97.6 80 18 101/50 (67) 99 05/10/19 00:00 98.8 83 19 128/69 (88) 95 05/09/19 21:00 Room Air 05/09/19 20:00 99.7 87 18 105/60 (75) 97 05/09/19 16:00 99.0 80 18 139/81 (100) 93 05/09/19 13:50 97.9 05/09/19 12:22 97.9 05/09/19 12:00 101.8 91 20 121/60 (80) 93 Intake and Output 05/09/19 05/10/19 19:00 07:00 Intake Total 600 ml 1012.500 ml Balance 600 ml 1012.500 ml Intake Oral 0 ml IV Total 412.500 ml Other 600 ml 600 ml # Voids 2 Laboratory Tests Test 05/10/19 05:15 05/10/19 06:30 Urine Color Pale yellow Urine Appearance Clear Urine pH 6 (4.5-8.0) Urine Specific [place] 1.020 (1.005-1.035) Urine Protein 2+ (NEGATIVE) H Urine Glucose (UA) Negative (NEGATIVE) Urine Ketones Negative (NEGATIVE) Urine Blood 4+ (NEGATIVE) H Urine Nitrite Negative (NEGATIVE) Urine Bilirubin Negative (NEGATIVE) Urine Urobilinogen Normal MG/DL (0.0-1.0) Urine Leukocyte Esterase Negative (NEGATIVE) Urine RBC 2-4 /HPF (0 - 2) H Urine WBC 0-2 /HPF (0 - 2) Urine Squamous Epithelial Cells Few /LPF (NONE/OCC) Urine Bacteria Few /HPF (NONE) White Blood Count 13.2 K/UL (4.8-10.8) H Red Blood Count 4.27 M/UL (4.20-5.40) Hemoglobin 14.1 G/DL (12.0-16.0) Hematocrit 40.8 % (37.0-47.0) Mean Corpuscular Volume 96 FL (80-99) Mean Corpuscular Hemoglobin 33.1 PG (27.0-31.0) H Mean Corpuscular Hemoglobin Concent 34.7 G/DL (32.0-36.0) Red Cell Distribution Width 11.5 % (11.6-14.8) L Platelet Count 192 K/UL (150-450) Mean Platelet Volume 6.2 FL (6.5-10.1) L Neutrophils (%) (Auto) 79.7 % (45.0-75.0) H Lymphocytes (%) (Auto) 10.1 % (20.0-45.0) L Monocytes (%) (Auto) 8.7 % (1.0-10.0) Eosinophils (%) (Auto) 0.9 % (0.0-3.0) Basophils (%) (Auto) 0.6 % (0.0-2.0) Erythrocyte Sedimentation Rate 34 MM/HR (0-30) H Sodium Level 136 MMOL/L (136-145) Potassium Level 5.1 MMOL/L (3.5-5.1) Chloride Level 103 MMOL/L (98-107) Carbon Dioxide Level 24 MMOL/L (21-32) Anion Gap 9 mmol/L (5-15) Blood Urea Nitrogen 9 mg/dL (7-18) Creatinine 1.0 MG/DL (0.55-1.30) Estimat Glomerular Filtration Rate > 60 mL/min (>60) Glucose Level 93 MG/DL (74-106) Calcium Level 8.9 MG/DL (8.5-10.1) Height (Feet): 5 Height (Inches): 4.00 Weight (Pounds): 98 Medications Current Medications Medications (Trade) Dose Ordered Sig/Kedar Route PRN Reason Start Time Stop Time Status Last Admin Dose Admin Acetaminophen (Tylenol) 650 mg Q6H PRN ORAL Mild Pain/Temp > 100.5 05/09/19 04:30 06/08/19 04:29 05/09/19 11:52 Cetylpyridinium Chloride (Cepacol) 1 lozg Q2H PRN VINNIE sore throat 05/09/19 19:00 06/08/19 18:59 05/10/19 08:13 Heparin Sodium (Porcine) (Heparin 5000 units/ml) 5,000 units EVERY 12 HOURS SUBQ 05/09/19 09:00 06/08/19 08:59 05/10/19 08:52 Piperacillin Sod/ Tazobactam Sod 3.375 gm/Sodium Chloride 110 ml @ 27.5 mls/hr EVERY 8 HOURS IVPB 05/09/19 06:00 05/14/19 05:59 05/10/19 05:04 Vancomycin HCl (Vanco rx to dose) 1 ea DAILY PRN MISC Per rx protocol 05/09/19 04:30 06/08/19 04:29 Vancomycin HCl 750 mg/Dextrose 275 ml @ 183.333 mls/hr Q24H IVPB 05/10/19 02:00 05/15/19 01:59 05/10/19 01:47 Assessment/Plan Assessment/Plan: Abx: IV Vancomycin 05/09- Ceftriaxone x1 05/09 Zosyn 05/09- Assessment: Acute encephalopathy -Head CT: Areas of mild decreased density suspected in the white matter which are nonspecific but are likely related to small vessel ischemic changes. Cerebral atrophy. Sepsis- r/o recurrent bacteremia, endocarditis -u/a no pyuria -CXR: no acute disease Fever Leukocytosis, improving Recent L elbow cellulitis c/w bacteremia- cellulitis improving -05/09 L elbow xray: . Soft tissue thickening over the olecranon less pronounced than on comparison study, this could represent improving olecranon bursitis, reinjury, or recurrent olecranon bursitis. Correlate clinically. No joint effusion. Unchanged irregularity of the choroid process could represent remote fracture or degenerative change. wound cx: S. aureus -04/2019 MRI L elbow: Diffuse edema of the dorsal soft tissues, consistent with stated clinical history of cellulitis Low signal abnormality perpendicular to the skin surface presumably reflects area of gauze packing within an open wound. No marrow signal abnormality to suggest acute osteomyelitis. No evidence of joint effusion -04/12 wound cx: MRSA, GAS Blood culture 08/07 MRSA Plan: -Continue IV vancomycin #2 -D/c empiric Zosyn #2 -f.u cx -Monitor CBC/CMP, temperatures -2d echo Thank you for this consultation. Will continue to follow along with you. Florencia Martin M.D. May 10, 2019 11:57
[2019-05-10 12:00] VITALS: BP 126/66
--- NOTE | 2019-05-10 12:36 | General Progress Note ---
Assessment/Plan Assessment/Plan: S: I am ok O: seems comfortable. mild pain. Wound well managed and clean HEENT: Eyes were normal. Pupils were round, equal, and reacting to light. Sclerae were white. ENT, mucous membranes were not dehydrated. NECK: Supple. There was no goiter. No mass. No lymphadenopathy. There was no JVD. LUNGS: Clear. HEART: PMI was in the fourth left intercostal space in midclavicular line. There was normal S1 and normal S2. There was tachycardia at rest. Sinus tachycardia on monitor. ABDOMEN: Soft and nontender with normal bowel sounds. EXTREMITIES: Warm without cyanosis, clubbing, or edema. Lab: Reviewed, with wbc 15-17, today Meds: reviwed and reconciled Echo from today is reviewed A/P: Acute encephalopathy -Head CT: Areas of mild decreased density suspected in the white matter which are nonspecific but are likely related to small vessel ischemic changes. Cerebral atrophy. Sepsis- r/o recurrent bacteremia, endocarditis -u/a no pyuria -CXR: no acute disease Fever Leukocytosis, improving Recent L elbow cellulitis c/w bacteremia- cellulitis improving Plan: Agree with current mgt LUE dupplex is ordered Subjective Allergies: Coded Allergies: No Known Allergies (Unverified , 04/12/19) Objective Last 24 Hour Vital Signs Date Time Temp Pulse Resp B/P (MAP) Pulse Ox O2 Delivery O2 Flow Rate FiO2 05/10/19 12:00 98.2 69 18 126/66 (86) 95 05/10/19 09:00 Room Air 05/10/19 08:00 98.2 66 18 116/66 (83) 95 05/10/19 04:00 97.6 80 18 101/50 (67) 99 05/10/19 00:00 98.8 83 19 128/69 (88) 95 05/09/19 21:00 Room Air 05/09/19 20:00 99.7 87 18 105/60 (75) 97 05/09/19 16:00 99.0 80 18 139/81 (100) 93 05/09/19 13:50 97.9 Intake and Output 05/09/19 05/10/19 19:00 07:00 Intake Total 600 ml 1012.500 ml Balance 600 ml 1012.500 ml Intake Oral 0 ml IV Total 412.500 ml Other 600 ml 600 ml # Voids 2 Laboratory Tests 05/10/19 05:15: Urine Color Pale yellow, Urine Appearance Clear, Urine pH 6, Urine Specific [place] 1.020, Urine Protein 2+H, Urine Glucose (UA) Negative, Urine Ketones Negative, Urine Blood 4+H, Urine Nitrite Negative, Urine Bilirubin Negative, Urine Urobilinogen Normal, Urine Leukocyte Esterase Negative, Urine RBC 2-4H, Urine WBC 0-2, Urine Squamous Epithelial Cells Few, Urine Bacteria Few 05/10/19 06:30: White Blood Count 13.2H, Red Blood Count 4.27, Hemoglobin 14.1, Hematocrit 40.8 , Mean Corpuscular Volume 96, Mean Corpuscular Hemoglobin 33.1H, Mean Corpuscular Hemoglobin Concent 34.7, Red Cell Distribution Width 11.5L, Platelet Count 192, Mean Platelet Volume 6.2L, Neutrophils (%) (Auto) 79.7H, Lymphocytes (%) (Auto) 10.1L, Monocytes (%) (Auto) 8.7, Eosinophils (%) (Auto) 0.9, Basophils (%) (Auto) 0.6, Erythrocyte Sedimentation Rate 34H, Sodium Level 136, Potassium Level 5.1, Chloride Level 103, Carbon Dioxide Level 24, Anion Gap 9, Blood Urea Nitrogen 9, Creatinine 1.0, Estimat Glomerular Filtration Rate > 60, Glucose Level 93, Calcium Level 8.9 Height (Feet): 5 Height (Inches): 4.00 Weight (Pounds): 98 Gary Pedersen MD May 10, 2019 12:36
--- NOTE | 2019-05-10 14:21 | NUR ---
RD ASSESSMENT & RECOMMENDATIONS SEE CARE ACTIVITY FOR COMPLETE ASSESSMENT DAILY ESTIMATED NEEDS: Needs based on underweight, wasting/ 44.5 kg 30-35 kcals/kg 4929-4017 total kcals 1-1.5 g protein/kg 45-67 g total protein 25-30 mL/kg 6374-4960 total fluid mLs NUTRITION DIAGNOSIS: Increased kcal/prot needs R/T underweight status as evidenced by suspected 75% IBW w/ BMI of 15.9 w/ generalized mild to moderate wasting. PO DIET RECOMMENDATIONS: REGULAR as tolerated ADDITIONAL RECOMMENDATIONS: * Standing weight for accurate CBW * Monitor BGs closely, need for carb controlled diet/NISS * Monitor PO intake closely * Add Snacks BID in b/w meals * Ensure BID in b/w meals as tolerated . .
--- NOTE | 2019-05-10 14:38 | Diagnostic Imaging Report ---
Indication: Abdominal pain. Abnormal white blood cells Technique: Nolan-scale and duplex images of the upper abdomen were obtained Comparison: none Findings: Gallbladder is unremarkable, without stones, wall thickening, nor pericholecystic fluid. Sonographic Noguera's sign is negative. Common bile duct measures 4 mm in diameter. No intrahepatic biliary ductal dilatation. Liver demonstrates normal echogenicity, no focal abnormality. Portal vein and hepatic veins are patent. Pancreas is unremarkable. Spleen is unremarkable. Left kidney measures 10 cm in length. Right kidney measures 10.7 cm length. Both kidneys demonstrate normal echogenicity. There is no hydronephrosis. The left kidney demonstrates multiple cysts and calcifications. The calcifications appear to be intracystic . Non-aneurysmal abdominal aorta . Impression: No acute abnormality. Negative for gallstones or dilated bile ducts Incidental finding of left renal cysts and nonobstructing calculi
[2019-05-10 16:00] VITALS: BP 101/62
--- NOTE | 2019-05-10 16:50 | NUR ---
NURSE NOTES: RN called Dr. Oswald's office. His secretary receptionist stated he is currently in a consult and cannot get to the phone. RN stated that the patient's primary attending has been changed to Dr. Pedersen per patient's request. Also reported that Dr. Pedersen has already evaluated the patient today. Motor Equipment Lieutenant stated that she will relay the message to Dr. Oswald.
--- NOTE | 2019-05-10 19:30 | NUR ---
HAND-OFF: Report given to Lindsey VAZQUEZ.
--- NOTE | 2019-05-10 19:30 | NUR ---
NURSE NOTES: Patient awake in bed, calm, not in acute respiratory distress. No complaints at this time. Call light in reach and pt was instructed. Bed in lowest, lock engaged and alarm on. Will continue to monitor.
[2019-05-10 20:00] VITALS: BP 98/56
[2019-05-11] VITALS: BP 124/63
[2019-05-11] MEDS: Vancomycin 750mg/D5W 275ml IVPB SCH ×2 (01:32)
[2019-05-11 04:00] VITALS: BP 122/68
--- NOTE | 2019-05-11 07:47 | NUR ---
NURSE NOTES: Patient received in stable condition, resting in bed watching television. Alert and orientedx4, responds appropriately. Breathing unlabored on room air. IV site patent and intact. Patient observed mobilizing independently and steadily. Call light placed within reach, will continue to monitor.
[2019-05-11 08:00] VITALS: BP 100/58
[2019-05-11] MEDS: Heparin 5000 units/ml inj SUBQ SCH (08:19)
--- NOTE | 2019-05-11 10:40 | NUR ---
CASE MANAGEMENT: REVIEW 05/11/19 SI:AMS. 97.5 79 16 100/58 99% RA 05/10/19 ESR 34 IS: IV VANCOMYCIN Q24HR HEPARIN SQ Q12 CEPACOL VINNIE Q2HR/PRN CEFTRIAXONE IV X1 :4E MED/SURG DCP: RETURN HOME
--- NOTE | 2019-05-11 11:23 | NUR ---
NURSE NOTES: RN informed PMD, ID and charge nurse of patient's +VRE rectum. All have acknowledged.
--- NOTE | 2019-05-11 11:38 | Infectious Diseases Prog Note ---
Assessment/Plan Assessment/Plan Assessment: Acute encephalopathy -Head CT: Areas of mild decreased density suspected in the white matter which are nonspecific but are likely related to small vessel ischemic changes. Cerebral atrophy. Sepsis; improving- ongoing cellulitis, improving- no bacteremia, echo with no vegetations -u/a no pyuria -CXR: no acute disease -05/08 BCx NTD Fever; improving Leukocytosis, improving Recent L elbow cellulitis c/w bacteremia- cellulitis improving -05/09 L elbow xray: . Soft tissue thickening over the olecranon less pronounced than on comparison study, this could represent improving olecranon bursitis, reinjury, or recurrent olecranon bursitis. Correlate clinically. No joint effusion. Unchanged irregularity of the choroid process could represent remote fracture or degenerative change. wound cx: MRSA (S bactrim, vancomycin; R Tetracycline), GAS -04/2019 MRI L elbow: Diffuse edema of the dorsal soft tissues, consistent with stated clinical history of cellulitis Low signal abnormality perpendicular to the skin surface presumably reflects area of gauze packing within an open wound. No marrow signal abnormality to suggest acute osteomyelitis. No evidence of joint effusion -04/12 wound cx: MRSA, GAS Blood culture 08/07 MRSA Plan: -Continue IV vancomycin #3 -ok to discharge on PO Bactrim DS 1 tab bid for 7 more adys -05/11 SP Zosyn #2 -05/09 SP Ceftriaxone x1 -f.u cx -Monitor CBC/CMP, temperatures Thank you for this consultation. Will continue to follow along with you. Subjective Allergies: Coded Allergies: No Known Allergies (Unverified , 04/12/19) Subjective afebrile in ~48hrs leukocytosis improving Bcx NTD Objective Vital Signs Last 24 Hour Vital Signs Date Time Temp Pulse Resp B/P (MAP) Pulse Ox O2 Delivery O2 Flow Rate FiO2 05/11/19 09:00 Room Air 05/11/19 08:00 97.5 79 16 100/58 (72) 99 05/11/19 04:00 97.8 72 18 122/68 (86) 95 05/11/19 00:00 98.0 72 18 124/63 (83) 95 05/10/19 21:00 Room Air 05/10/19 20:00 97.9 65 18 98/56 (70) 94 05/10/19 16:00 97.4 69 18 101/62 (75) 93 05/10/19 12:00 98.2 69 18 126/66 (86) 95 Height (Feet): 5 Height (Inches): 4.00 Weight (Pounds): 98 Objective HEENT: Eyes were normal. Pupils were round, equal, and reacting to light. Sclerae were white. ENT, mucous membranes were not dehydrated. NECK: Supple. There was no goiter. No mass. No lymphadenopathy. There was no JVD. LUNGS: Clear. HEART: PMI was in the fourth left intercostal space in midclavicular line. There was normal S1 and normal S2. There was tachycardia at rest. Sinus tachycardia on monitor. ABDOMEN: Soft and nontender with normal bowel sounds. EXTREMITIES: Warm without cyanosis, clubbing, or edema. Microbiology Date/Time Source Procedure Growth Status 05/09/19 18:25 Blood Blood Culture - Preliminary NO GROWTH AFTER 24 HOURS Resulted 05/08/19 23:55 Blood Blood Culture - Preliminary NO GROWTH AFTER 48 HOURS Resulted 05/08/19 23:45 Blood Blood Culture - Preliminary NO GROWTH AFTER 48 HOURS Resulted 05/09/19 05:00 Nasal Nares MRSA Culture - Final Staphylococcus Aureus - Mrsa Complete 05/09/19 05:00 Rectum VRE Culture - Final Enterococcus Faecalis - Vre Complete 05/09/19 05:00 Rectum - Final NO CARBAPENEM-RESISTANT ENTEROBACTERI... Complete 05/09/19 05:00 Elbow Left Gram Stain - Final Complete 05/09/19 05:00 Wound Culture - Final Staphylococcus Aureus - Mrsa Streptococcus Group A Complete Current Medications Medications (Trade) Dose Ordered Sig/Kedar Route PRN Reason Start Time Stop Time Status Last Admin Dose Admin Acetaminophen (Tylenol) 650 mg Q6H PRN ORAL Mild Pain/Temp > 100.5 05/09/19 04:30 06/08/19 04:29 05/09/19 11:52 Cetylpyridinium Chloride (Cepacol) 1 lozg Q2H PRN VINNIE sore throat 05/09/19 19:00 06/08/19 18:59 05/11/19 10:57 Heparin Sodium (Porcine) (Heparin 5000 units/ml) 5,000 units EVERY 12 HOURS SUBQ 05/09/19 09:00 06/08/19 08:59 05/11/19 08:19 Vancomycin HCl (Vanco rx to dose) 1 ea DAILY PRN MISC Per rx protocol 05/09/19 04:30 06/08/19 04:29 Vancomycin HCl 750 mg/Dextrose 275 ml @ 183.333 mls/hr Q24H IVPB 05/10/19 02:00 05/15/19 01:59 05/11/19 01:32 Florencia Martin M.D. May 11, 2019 11:38
--- NOTE | 2019-05-11 11:39 | General Progress Note ---
Assessment/Plan Assessment/Plan: S: can I go home O: seems comfortable. Denies pain HEENT: Eyes were normal. Pupils were round, equal, and reacting to light. Sclerae were white. ENT, mucous membranes were not dehydrated. NECK: Supple. There was no goiter. No mass. No lymphadenopathy. There was no JVD. LUNGS: Clear. HEART: PMI was in the fourth left intercostal space in midclavicular line. There was normal S1 and normal S2. There was tachycardia at rest. Sinus tachycardia on monitor. ABDOMEN: Soft and nontender with normal bowel sounds. EXTREMITIES: Warm without cyanosis, clubbing, or edema. Lab: Reviewed, with wbc 13.5, today Meds: reviwed and reconciled Echo from today is reviewed A/P: Acute encephalopathy -Head CT: Areas of mild decreased density suspected in the white matter which are nonspecific but are likely related to small vessel ischemic changes. Cerebral atrophy. Sepsis- r/o recurrent bacteremia, endocarditis -u/a no pyuria -CXR: no acute disease Fever Leukocytosis, improving Recent L elbow cellulitis c/w bacteremia- cellulitis improving Plan: D/w ID Ok to fu with PO abx as o/p Subjective Allergies: Coded Allergies: No Known Allergies (Unverified , 04/12/19) Objective Last 24 Hour Vital Signs Date Time Temp Pulse Resp B/P (MAP) Pulse Ox O2 Delivery O2 Flow Rate FiO2 05/11/19 09:00 Room Air 05/11/19 08:00 97.5 79 16 100/58 (72) 99 05/11/19 04:00 97.8 72 18 122/68 (86) 95 05/11/19 00:00 98.0 72 18 124/63 (83) 95 05/10/19 21:00 Room Air 05/10/19 20:00 97.9 65 18 98/56 (70) 94 05/10/19 16:00 97.4 69 18 101/62 (75) 93 05/10/19 12:00 98.2 69 18 126/66 (86) 95 Intake and Output 05/10/19 05/11/19 19:00 07:00 Intake Total 400 ml Balance 400 ml Other 400 ml # Voids 2 4 # Bowel Movements 1 Height (Feet): 5 Height (Inches): 4.00 Weight (Pounds): 98 Rezvani,Mohammad MD May 11, 2019 11:39
[2019-05-11 12:00] VITALS: BP 111/71
[2019-05-11] MEDS ORDERED: BACTRIM DS TAB1 EAC1 ORAL (13:35)
--- NOTE | 2019-05-11 14:17 | Cardiology Report ---
APPROVED REPORT EKG Measurement Heart [id number] Normal sinus rhythm Possible Left atrial enlargement Borderline ECG
--- NOTE | 2019-05-11 15:11 | NUR ---
NURSE NOTES: Patient discharged to home accompanied by friend in private vehicle. Patient ambulated steadily and was alert and oriented. IV was safely removed, covered with gauze and tape. Patient had no belongings upon admission, and confirmed as such at discharge. Discharge packet provided and reviewed. Paper prescription given, instructions given. Patient verbalized understanding. GoodRX coupon given as patient stated she cannot afford expensive medication. Patient reviewed the coupon and stated she can afford $9 for the medication. Importance of compliance to antibiotic therapy enforced. Patient verbalized understanding.
--- NOTE | 2019-05-12 09:54 | CDS Physician Query ---
Clarification is required for compliance, coding accuracy, and to reflect severity of illness for this patient Dear Dr. Gary Pedersen Date: 05/12/2019 Instructor Apparel Manufacture/CDS Name: Lydia Tyson Clinical Documentation states: ED note: 68-year-old female presents for evaluation of mental status change release manager the past 12 hours... We will start broad metabolic and infectious work-up as well as tox screens...Patient does appear more encephalopathic 05/11 progress note - Acute encephalopathy...Sepsis- r/o recurrent bacteremia, endocarditis...Recent L elbow cellulitis c/w bacteremia- cellulitis improving Please indicate the nature and chronicity of the condition below: [] Metabolic Encephalopathy [] Toxic Encephalopathy [] Septic Encephalopathy [] Encephalopathy, Other [] Dementia with Delirium [] Hypoxic encephalopathy [] Posterior reversible encephalopathy syndrome [] Other: [] Not Applicable Present on Admission: [] Yes [] No [] Clinically Undetermined Physician signature Date Please also document in your Progress Notes and/or Discharge Summary and indicate if the condition was present on admission. MTDD
--- NOTE | 2019-05-12 09:58 | CDS Physician Query ---
Clarification is required for compliance, coding accuracy, and to reflect severity of illness for this patient Dear Dr. Gary Pedersen Date: 05/12/2019 Architecture Department Chair/CDS Name: Lydia Tyson Clinical Documentation notes 68 yo female admitted for treatment of sepsis with cellulitis and encephalopathy. RD note - NUTRITION DIAGNOSIS: Increased kcal/prot needs R/T underweight status as evidenced by suspected 75% IBW w/ BMI of 15.9 w/ generalized mild to moderate wasting. Please select the most appropriate option: [] Protein/Calorie Malnutrition [] Mild [] Moderate [] Severe [] Hypoalbuminemia [] Cachexia [] Underweight [] Intestinal malabsorption [] Other [] Unable to determine [] Not Applicable Present on Admission: [] Yes [] No [] Clinically Undetermined Physician signature Date Please also document in your Progress Notes and/or Discharge Summary and indicate if the condition was present on admission. ADIEL
--- NOTE | 2019-05-13 13:10 | Diagnostic Imaging Report ---
APPROVED REPORT CPT Code: 61081 Present Symptoms Comments: Infection LEFT UPPER EXTREMITY: Imaging reveals patency of the internal jugular, subclavian, axillary and brachial veins. The cephalic and basilic veins are also patent. Doppler indicates normal spontaneous flow within left upper extremity venous segment.
--- NOTE | 2019-05-13 13:47 | Discharge Summary ---
Discharge Summary Discharge Summary _ DATE OF ADMISSION: 05/09/2019 DATE OF DISCHARGE: 05/11/2019 DISCHARGED BY: Dr. Pedersen REASON FOR ADMISSION: 68 years old female with past medical history presented for evaluation of altered mental status. Patient was admitted in the hospital several weeks ago for left elbow cellulitis and altered mental status. At that time patient also had acute kidney injury , which resolved. Patient completed a course of antibiotic, and visiting nurse stated that the wound was healing well as well. Per patient's younger brother, patient was in her usual state of health , when she woke up in the morning . However , throughout the day, she became progressively more confused. No fevers or chills. No chest pain or shortness of breath. No cough , no congestion. No vomiting or diarrhea. No dysuria. No recent rash. No history of fall , no head trauma. Per patient's brother, she was answering his question progressively more and more incoherent. Patient did not remember what she was doing. Patient had very similar presentation on the prior admission to hospital due to left elbow cellulitis. Patient could not recall why she was brought to the hospital by her younger brother. She denied any complaint. She had a hard time to follow commands. Upon evaluation vital signs were stable. Laboratory work-up revealed leukocytosis WBC 19.8, stable hemoglobin and hematocrit. Troponin negative. Sodium 128. Ammonia less than 10. Urinalysis revealed no evidence of UTI. Urine toxicology screen was negative. Serum alcohol , salicylate, and Tylenol levels were all negative. CT of the head revealed no evidence of acute intracranial pathology. Noted areas of mild decreased density in the white matter, nonspecific, likely related to small vessel ischemic changes. Chest x-ray revealed no acute cardiopulmonary pathology. X-ray of the left elbow revealed no joint effusion. Soft tissue thickening over the olecranon less pronounced than on the prior study , probably representing improving olecranon bursitis, reinjury or recurrent olecranon bursitis. Patient subsequently admitted for further management. CONSULTANTS: ID specialist Dr. Martin [facility]SE: Patient admitted to medical surgical floor and started on antibiotics as per ID specialist recommendation. Blood cultures were negative. Culture of the left elbow revealed MRSA and Strep group A. Repeated blood culture on the next day were negative as well. Leukocytosis trending down from 19.8 on admission down to 13.2 on the day of discharge. Initial fever resolved. ID specialist recommended to continue IV antibiotic while in the hospital and changed to oral Bactrim DS 1 tab twice daily for 7 more days. Initial ESR 85 down to 34. Protein supplements provided as per registered nurse renal recommendations, who deemed patient to be at high risk for malnutrition. Renal parameters and electrolytes were closely monitored. Electrolytes corrected as needed. With IV hydration sodium from 128 up to 136 . Renal parameters remained stable . Patient clinically stabilized and was ready for discharge home with home health for wound care . FINAL DIAGNOSES: Sepsis due to ongoing left elbow cellulitis Recent left elbow cellulitis with bacteremia -improving Acute metabolic encephalopathy Protein calorie malnutrition, moderate DISCHARGE MEDICATIONS: See Medication Reconciliation list. DISCHARGE INSTRUCTIONS: Patient was discharged home with home health services for wound care. Follow up with primary care provider in one week. I have been assigned to dictate discharge summary for this account. I was not involved in the patient's management. Guerita Ruelas NP May 13, 2019 13:47
--- NOTE | 2019-05-13 21:05 | Cardiology Report ---
APPROVED REPORT EXAM: Two-dimensional and M-mode echocardiogram with Doppler and color Doppler. INDICATION Vegetation M-Mode DIMENSIONS IVSd0.8 (0.7-1.1cm)Left Atrium (MM)3.4 (1.6-4.0cm) LVDd3.8 (3.5-5.6cm)Aortic Root2.6 (2.0-3.7cm) PWd1.0 (0.7-1.1cm)Aortic Cusp Exc.2.0 (1.5-2.0cm) LVDs2.1 (2.5-4.0cm) PWs1.5 cm Normal left ventricular chamber size, systolic function and wall motion. Left ventricular ejection fraction estimated to be 55 %. All other cardiac chamber sizes are within normal limits. Focal aortic valve sclerosis with adequate cusp excursion. Mildly thickened mitral valve leaflets with normal excursion. Mild mitral annulus and aortic root calcification. Pulmonic valve not well visualized. Normal tricuspid valve structure. No discrete vegetations seen. A color flow and spectral Doppler study was performed and revealed: Mitral diastolic velocities suggest mild left ventricular diastolic dysfunction (Grade I). Trace tricuspid regurgitation. Tricuspid systolic velocities suggests peak right ventricular systolic pressure of 27 mmHg. Trace pulmonic regurgitation present.
== END 2019-05-11 15:13 | disposition home health service (06) | DRG 871 ==
LOC: EMR 23:48 → EDBEDREQ 05-09 01:49 → 4E 05-09 02:00 → EDBEDREQ 05-09 02:20
DX: A41.9 Sepsis, unspecified organism (principal); G93.41 Metabolic encephalopathy; E44.0 Moderate protein-calorie malnutrition; L03.114 Cellulitis of left upper limb; Z68.1 Body mass index [BMI] 19.9 or less, adult; B95.62 Methicillin resistant Staphylococcus aureus infection as the cause of diseases classified elsewhere; B95.0 Streptococcus, group A, as the cause of diseases classified elsewhere
CPT/HCPCS: 36415; 70450; 71045; 76700; 76856; 80048; 80053; 80076; 80307; 80329; 81001; 81003; 82140; 82550; 82553; 83605; 84443; 84484; 85007; 85025; 85651; 86140; 87040; 87070; 87081; 87181; 87205; 93005; 93306; 93971; 96360; 99285

== ENCOUNTER 2019-06-12 16:30 | Emergency (ER) | payer MEDICARE ==
[~2019-06-12] VITALS: Ht 167.6 cm; Wt 48.5 kg
[~2019-06-12 16:30] MED LIST changes: +BACTRIM DS TAB1 EAC1 ORAL
[2019-06-12 17:00] VITALS: BP 148/79
--- NOTE | 2019-06-12 17:00 | NUR ---
ED Nurse Note: patient walked in to ER from home due to Lt foot but bite x a week. no redness or swelling noted on Lt foot. Patient alert and oriented x4 and ambulatory. skin clean and intact. Calm and cooperative. No acute distress noted at this time.
[2019-06-12] MEDS ORDERED: CEPHALEXIN500 MG ORAL (17:15)
[2019-06-12] MEDS ORDERED: TRIAMCINOLONE A15 G1 TP (17:16)
[2019-06-12 17:20] VITALS: BP 139/71
--- NOTE | 2019-06-12 17:21 | NUR ---
ED Nurse Note: Pt cleared by health care Provider for discharge. DC instructions/prescription was given and explained to pt and verbalized understanding of teachings. All medical deviecs such as ID band removed. Pt is AAO x4, ambulatory and left with all personal belongings.
--- NOTE | 2019-06-12 18:18 | Emergency Room Report ---
History of Present Illness General Chief Complaint: Skin Rash/Abscess Source: Patient (Ria Whipple) Present Illness HPI 68-year-old female complaining of redness and itchiness on the left ankle x2 to 3 days. Patient states she woke up with the symptoms. Denies pain. No relieving/aggravating factors. Patient states that she walked and took the bus here. Denies fever, chills, vomiting, diarrhea, abdominal pain. (Ria Whipple) Allergies: Coded Allergies: No Known Allergies (Unverified , 04/12/19) Patient History Past Medical History: other - left elbow cellulitis Past Surgical History: none Social History: Reports: smoking (Ria Whipple) Nursing Documentation-[facility] Past Medical History: No History, Except For Hx Cardiac Problems: No Hx Cancer: No Hx Gastrointestinal Problems: No Hx Neurological Problems: No - AMS (Ria Whipple) Review of Systems All Other Systems: negative except mentioned in HPI (Ria Whipple) Physical Exam Vital Signs Date Time Temp Pulse Resp B/P (MAP) Pulse Ox O2 Delivery O2 Flow Rate FiO2 06/12/19 16:50 97.9 99 16 148/79 (102) 96 Room Air Sp02 EP Interpretation: reviewed, normal General Appearance: no apparent distress, alert, GCS 15, non-toxic Respiratory: chest non-tender, lungs clear, normal breath sounds, speaking full sentences Cardiovascular #1: regular rate, rhythm, no edema Musculoskeletal: back normal, gait/station normal, normal range of motion, non- tender Neurologic: alert, oriented x3, responsive, motor strength/tone normal, sensory intact, speech normal Skin: other - 2 x 3 area of erythema and edema, nontender to palpation in the wound. No open wound or discharge (Ria Whipple) Medical Decision Making PA Attestation This patient was seen under the direct supervision of Dr. Zavala, who directed all aspects of care and diagnostic interpretation. (Ria Whipple) Medicare Attestation The history of Rosalva Mejía has been reviewed and management options for her have been examined and discussed by Lester Zavala. I have personally examined and interviewed the patient. (Lester Zavala MD) Diagnostic Impression: Primary Impression: Insect bite (nonvenomous), left ankle, initial encounter ER Course ED course HPI: 68-year-old female complaining of redness and itchiness on the left ankle x2 to 3 days. Patient states she woke up with the symptoms. Denies pain. No relieving/aggravating factors. Patient states that she walked and took the bus here. Denies fever, chills, vomiting, diarrhea, abdominal pain. Ddx: Insect bite, cellulitis, abrasion, laceration HPI & PE consistent with: Insect bite, left ankle Orders/ Interventions: None Disposition: Avoid irritation or scratching to affected area. Apply ice to affected area. Use TMC 0.1% ("0.1% cream written on Rx) to affected area. If not improved in 2 days or if symptoms worsen, start cephalexin x 10 days. At this time pt. is stable for d/c to home. Will provide printed patient care instructions, and any necessary prescriptions. Care plan and follow up instructions have been discussed with the patient prior to discharge. Please note that this Emergency Department Report was dictated using [employer] manager controller technology software, occasionally this can lead to erroneous entry secondary to interpretation by the dictation equipment. (Ria Whipple) Last Vital Signs Date Time Temp Pulse Resp B/P (MAP) Pulse Ox O2 Delivery O2 Flow Rate FiO2 06/12/19 17:20 97.9 88 16 139/71 100 Room Air (Ria Whipple) Disposition: HOME, SELF-CARE Condition: Stable Scripts Triamcinolone Acetonide (Triamcinolone Acetonide 0.5% Cream*) 15 Gm Cream..g. 1 APPLIC TP BID, #30 GM Prov: Ria Whipple 06/12/19 Cephalexin* (KEFLEX*) 500 Mg Capsule 500 MG ORAL EVERY 8 HOURS, #30 CAP 0 Refills Prov: Ria Whipple 06/12/19 Patient Instructions: Insect Bite, [id number] Additional Instructions: Follow-up with PCP in 2 days return to ER if worsening symptoms, new symptoms or sudden change in condition. Ria Whipple Jun 12, 2019 18:18 Lester Zavala MD Jun 15, 2019 13:51
== END 2019-06-12 17:20 | disposition home or self-care (01) ==
LOC: EMR 17:18
DX: S90.562A Insect bite (nonvenomous), left ankle, initial encounter (principal); W57.XXXA Bitten or stung by nonvenomous insect and other nonvenomous arthropods, initial encounter; Y92.9 Unspecified place or not applicable
CPT/HCPCS: 99282